=== PATIENT | male | born 1985 | race Caucasian/White ===

== ENCOUNTER 2018-01-07 20:32 | Inpatient (IN) | payer MEDICAID ==
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
[2018-01-07 21:31] LABS: ABS Basophils 0.1 10^3/ul (0-0.2); ABS Eosinophils 0.3 10^3/ul (0-0.6); ABS Monocytes 0.8 10^3/ul (0-0.8); ABS Neutrophils 7.6 10^3/ul (1.5-7.7); ABS Nucleated RBC 0.1 10^3/ul; Eosinophil % 2.1 % (0-6); Hematocrit 46 % (42-52); Hemoglobin 15.5 g/dl (14.0-18.0); Lymphocyte % 25.3 % (25-47); Mean Corpuscular HGB Conc 34 g/dl (31-36); Mean Corpuscular Hemoglobin 30 pg (27-31); Mean Corpuscular Volume 89 fL (80-94); Nucleated Red Blood Cells % 0.6; Platelet Count 315 10^3/ul (150-450); Red Blood Count 5.12 10^6/ul (4.00-5.40); Red Cell Distribution Width 13 % (10.5-15); White Blood Count 11.7 10^3/ul (3.5-10.8)
[2018-01-07 21:41] LABS: Urine Appearance Clear; Urine Blood Negative (Negative); Urine Color Amber; Urine Ketones Trace (Negative); Urine Protein 1+(30 mg/dL) (Negative); Urine Red Blood Cell Trace(0-2/hpf) (Absent); Urine Specific Gravity 1.033 (1.010-1.030); Urine Urobilinogen Negative (Negative); Urine White Blood Cell Absent (Absent)
[2018-01-07 21:49] LABS: EGFR Non-African American 108.9 (>60)
[2018-01-08] MEDS ORDERED: chlorproMAZINE TAB* 50 MG ONE (00:42)
[2018-01-08] MEDS ORDERED: chlorproMAZINE INJ* 25 MG/ML 2 ML (50 MG) ONE ×2 (00:42)
--- NOTE | 2018-01-08 00:43 | ED ---
Progress - Progress Note Progress Note: This is marie Anderson documenting for attending Dr. Manoj Main MD. This patient was signed out from Dr. Lewis at shift change, pending disposition , awaiting MHE. The patient is diagnosed with pyschosis. He will be admitted to [facility]. Patient is agreeable with this plan. - Consult/PCP Time Called: 00:00 Course/Dx - Diagnoses Provider Diagnoses: Psychosis Discharge - Sign-Out/Discharge Documenting (check all that apply): Patient Departure, Receiving Sign-Out Receiving patient FROM: Devin Lewis - Patient was a sign out at shift change, pending disposition, awaiting MHE. - Discharge Plan Condition: Guarded Disposition: ADMITTED TO [facility] - Billing Disposition and Condition Condition: GUARDED Disposition: Admitted to [facility]
[2018-01-08] MEDS ORDERED: chlorproMAZINE TAB* 100 MG PO ONE (00:46)
[2018-01-08] MEDS ORDERED: Acetaminophen TAB* 325 MG PO PRN (01:21)
[2018-01-08] MEDS ORDERED: Al Hydrox/Mg Hydrox/Simet LIQ* 30 ML UDC PO PRN (01:21)
[2018-01-08] MEDS ORDERED: Haloperidol TAB* 5 MG PO PRN (01:22)
[2018-01-08] MEDS ORDERED: LORazepam TAB(*) 1 MG PO PRN (01:22)
[2018-01-08] MEDS: Vitamin THERAPEUTIC TAB PO SCH (09:59)
[2018-01-08] MEDS: risperiDONE TAB* 1 MG PO SCH (16:24)
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
[2018-01-09] MEDS: Vitamin THERAPEUTIC TAB PO SCH (09:29)
[2018-01-09] MEDS: risperiDONE TAB* 1 MG PO SCH (09:30)
[2018-01-09] MEDS ORDERED: Gadoteridol* (CONTRAST) 279.3 MG/ML 10 ML IV ONE (10:55)
--- NOTE | 2018-01-09 11:48 | RAD ---
INDICATION: Psychosis COMPARISON: None TECHNIQUE: Sagittal T1, axial T1, T2, susceptibility, FLAIR and diffusion-weighted images were obtained. In addition, axial, sagittal and coronal T1-weighted images were obtained following intravenous injection of 20 mL of ProHance contrast. FINDINGS: The ventricles, cisterns and sulci appear to be within normal limits. The bermudez-white matter differentiation is adequately preserved. There are no parenchymal brain lesions. No other significant focal abnormality or mass effect is seen. No areas of restricted diffusion are present. There is no evidence for infarct or hemorrhage. There is mild mucosal thickening of the right maxillary sinus with 1 inspissated secretion. Remaining sinuses are adequately aerated. IMPRESSION: Normal MRI of the brain with and without intravenous contrast.
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
[2018-01-10] MEDS: Vitamin THERAPEUTIC TAB PO SCH (08:50)
[2018-01-10] MEDS: risperiDONE TAB* 1 MG PO SCH (08:50)
--- NOTE | 2018-01-10 13:37 | PN ---
Subjective - Subjective Date of Service: 01/10/18 Service Type: 18561 Hosp care 15 min low complexity Subjective: WILBERTO appears euthymic and continues to present as odd and circumstantial, although with much less overt paranoia today. He is tolerating risperidone well and thinks it is helping him. "Normally I'm a somewhat anxious person. Like a 3 on the 1-10 scale, but this medicine seems to reduce that." He also expresses willingness to follow up at [facility] clinic. "Yeah, I think it would give me something to do, going downtown and talking to someone, maybe once a week or once every two weeks." His mother and step-father visited this afternoon and reportedly told the SW that WILBERTO is looking like he's back to his baseline. The patient talks at length about his relief at getting a negative head MRI, stating "Now at least I know that I don't have cancer. It's a lot off my shoulders." He does not come up with any spontaneous delusional material during our visit. Staff notes that he is calm and polite but tends not to interact with others much. He continues to deny SI or HI. Objective - Appearance Appearance: Well Developed/Nourished Dysmorphic Features: No Hygiene: Normal Grooming: Well Kept - Behavior Psychomotor Activities: Normal Exhibits Abnormal Movement: No - Attitude and Relatedness Attitude and Relatedness: Cooperative Eye Contact: Fair - Speech Quality: Unpressured Latencies: Normal Quantity: Appropriate - Mood Patient's Decription of Mood: "Good" - Affect Observed Affect: Fair Affect Consistent with: Euthymia - Thought Process Patient's Thought Process: Circumstantial Thought Content: No Passive Wish, No Suicidal Planning, No Homicidal Ideation, No Paranoid Ideation - Sensorium Experiencing Hallucinations: No, Sensorium is Clear Type of Hallucinations: Visual: No, Auditory: No, Command: No - Level of Consciousness Level of Consciousness: Alert Orientation: Yes Intact, Yes Orientated to Time, Yes Orientated to Place, Yes Orientated to Person - Impulse Control Impulse Control: Tenuous - Insight and Judgement Insight and Judgement: Fair - Group Participation Particating in Group Activities: No - Medication Management Medication Management Adherence: Yes Assessment - Assessment Merits Inpatient Hospitalization: Consolidate Improvements, Pending Safe DC Plan Inpatient DSM-V Dx: F29 Clinical Impression: 32 y.o. single, white, unemployed male with no formal psychiatric history who presents to the ED voluntarily for several days, appearing paranoid, delusional and unable to care for himself. Plan - Plan Treatment Plan: Name: WILBERTO RAMIREZ Birthdate: 1985 [id number] The patient has initiated antipsychotic therapy with risperidone 1mg PO qday. He is improving and does not seem to be a danger to himself or others. He is agreeable with continuing medication and psychotherapy on an outpatient basis at [facility]. Likely d/c to home tomorrow (01/11). Continued Medication Management: Start Medication Medications: Current Medications Acetaminophen (Tylenol Tab*) 650 mg PO Q4H PRN PRN Reason: PAIN or TEMP > 101 F Al Hydrox/Mg Hydrox/Simethicone (Maalox Plus*) 30 ml PO Q4H PRN PRN Reason: INDIGESTION Diphenhydramine HCl (Benadryl Po*) 50 mg PO Q6H PRN PRN Reason: ANXIETY/AGITATION Haloperidol (Haldol Tab*) 5 mg PO Q6H PRN PRN Reason: ANXIETY/AGITATION Lorazepam (Ativan Tab(*)) 2 mg PO Q6H PRN PRN Reason: ANXIETY/AGITATION Multivitamins (Theragran Tab*) 1 tab PO DAILY [facility] Last Admin: 01/10/18 08:50 Dose: 1 tab Risperidone (Risperdal*) 1 mg PO DAILY [facility] Last Admin: 01/10/18 08:50 Dose: 1 mg - Discharge Plan Discharge Plan: Outpatient Follow Up Outpatient Program: [facility] Lab Results - Lab Results Lab Results: 01/07/18 01/07/18 01/07/18 21:19 21:19 21:20 WBC 11.7 H RBC 5.12 Hgb 15.5 Hct 46 MCV 89 MCH 30 MCHC 34 RDW 13 Plt Count 315 MPV 9.0 Neut % (Auto) 64.9 Lymph % (Auto) 25.3 Grant % (Auto) 6.8 Eos % (Auto) 2.1 Baso % (Auto) 0.9 Absolute Neuts (auto) 7.6 Absolute Lymphs (auto) 3.0 Absolute Monos (auto) 0.8 Absolute Eos (auto) 0.3 Absolute Basos (auto) 0.1 Absolute Nucleated RBC 0.1 Nucleated RBC % 0.6 Sodium Potassium Chloride Carbon Dioxide Anion Gap BUN Creatinine Est GFR ( Amer) Est GFR (Non-Af Amer) BUN/Creatinine Ratio Glucose Hemoglobin A1c Calcium Total Bilirubin AST ALT Alkaline Phosphatase Total Protein Albumin Globulin Albumin/Globulin Ratio Triglycerides Cholesterol LDL Cholesterol HDL Cholesterol TSH Urine Color Liz Urine Appearance Clear Urine pH 5.0 Ur Specific [place] 1.033 H Urine Protein 1+(30 mg/dl) A Urine Ketones Trace A Urine Blood Negative Urine Nitrate Negative Urine Bilirubin Negative Urine Urobilinogen Negative Ur Leukocyte Esterase Negative Urine WBC (Auto) Absent Urine RBC (Auto) Trace(0-2/hpf) Ur Squamous Epith Cells Present A Urine Bacteria Absent Hyaline Casts Present A Urine Glucose Negative Salicylates Urine Opiates Screen None detected Acetaminophen Ur Barbiturates Screen None detected Ur Phencyclidine Scrn None detected Ur Amphetamines Screen None detected U Benzodiazepines Scrn None detected Urine Cocaine Screen None detected U Cannabinoids Screen None detected Serum Alcohol 01/07/18 01/07/18 21:20 21:20 WBC RBC Hgb Hct MCV MCH MCHC RDW Plt Count MPV Neut % (Auto) Lymph % (Auto) Grant % (Auto) Eos % (Auto) Baso % (Auto) Absolute Neuts (auto) Absolute Lymphs (auto) Absolute Monos (auto) Absolute Eos (auto) Absolute Basos (auto) Absolute Nucleated RBC Nucleated RBC % Sodium 138 Potassium 3.6 Chloride 104 Carbon Dioxide 24 Anion Gap 10 BUN 12 Creatinine 0.82 Est GFR ( Amer) 131.7 Est GFR (Non-Af Amer) 108.9 BUN/Creatinine Ratio 14.6 Glucose 133 H Hemoglobin A1c 5.5 Calcium 9.5 Total Bilirubin 0.30 AST 19 ALT 27 Alkaline Phosphatase 75 Total Protein 7.5 Albumin 4.5 Globulin 3.0 Albumin/Globulin Ratio 1.5 Triglycerides 158 Cholesterol 168 LDL Cholesterol 87 HDL Cholesterol 49.3 TSH 1.09 Urine Color Urine Appearance Urine pH Ur Specific [place] Urine Protein Urine Ketones Urine Blood Urine Nitrate Urine Bilirubin Urine Urobilinogen Ur Leukocyte Esterase Urine WBC (Auto) Urine RBC (Auto) Ur Squamous Epith Cells Urine Bacteria Hyaline Casts Urine Glucose Salicylates 3.70 Urine Opiates Screen Acetaminophen < 15 Ur Barbiturates Screen Ur Phencyclidine Scrn Ur Amphetamines Screen U Benzodiazepines Scrn Urine Cocaine Screen U Cannabinoids Screen Serum Alcohol < 10
[2018-01-11 07:53] VITALS: BP 151/90
[2018-01-11] MEDS: Vitamin THERAPEUTIC TAB PO SCH (09:23)
[2018-01-11] MEDS: risperiDONE TAB* 1 MG PO SCH (09:23)
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
== END 2018-01-11 13:00 | disposition home or self-care (01) | DRG 751 ==
LOC: ED 20:32 → BSU 01-08 00:25
PROVIDERS: ADMIT Psychiatry & Neurology Psychiatry; ATTEND Psychiatry & Neurology Psychiatry
DX: F29 Unspecified psychosis not due to a substance or known physiological condition (principal); Z81.8 Family history of other mental and behavioral disorders
CPT/HCPCS: 36415; 70553; 80053; 80061; 80307; 80320; 80329; 81003; 81015; 83036; 84443; 85025; 99222; 99231; 99232; 99285; A9270-GY; A9579; G0480

== ENCOUNTER 2018-02-23 12:46 | Emergency (ER) | payer MEDICAID ==
--- NOTE | 2018-02-23 13:29 | ED ---
Neurological HPI - HPI Summary HPI Summary: 32 M who takes abilify and respiradone for unspecified schizophrenic spectrum disorder, sees Dr. Dee at [facility] and sees a counselor weekly, presents today with complaints of blurred vision that has resolved, and feeling that he is going to "tip over", dizziness. He denies COLEMAN, fever, chest pain, SOB, abd pain , N, V, D. He was just DC'd from [facility] on 01/11/18 and started on the abilify which he feels is helping him. States he may have gotten dehydrated. Pt denies suicidal or homicidal ideation, denies hearing voices or visual hallucinations. - History of Current Complaint Chief Complaint: EDGeneral Stated Complaint: BLURRED VISION,NAUSEA Time Seen by Provider: 02/23/18 13:06 Hx Obtained From: Patient Onset/Duration: Gradual Onset, Started hours ago Timing: Constant Onset Severity: Moderate Current Severity: Mild Pain Intensity: 0 Pain Scale Used: 0-10 Numeric Character: Dizzy, Other: - like he will tip over Aggravating: Nothing Alleviating: Nothing Associated Signs and Symptoms: Positive: Visual Changes - blurred vision this am , resolved, Dizziness TPA Considered: No - Additional Pertinent History Primary Care Physician: None noted - Allergy/Home Medications Allergies/Adverse Reactions: Allergies Allergy/AdvReac Type Severity Reaction Status Date / Time No Known Allergies Allergy Verified 02/23/18 12:58 Home Medications: Home Medications ARIPiprazole TAB* [Abilify TAB*] 10 mg PO DAILY 02/23/18 [History Confirmed ] PMH/Surg Hx/FS Hx/Imm Hx Previously Healthy: No - schizophrenia Cardiovascular History: Denies: Hx Hypotension Sensory History: Denies: Hx Contacts or Glasses, Hx Deafness, Hx Hearing Aid Opthamlomology History: Denies: Hx Contacts or Glasses Psychiatric History: Reports: Hx Inpatient Treatment, Hx Community Mental Health Tx, Hx Schizophrenia - Cancer History Cancer Type, Location and Year: none - Surgical History Surgery Procedure, Year, and Place: none Infectious Disease History: No Infectious Disease History: Denies: Traveled Outside the [place] in Last 30 Days - Family History Known Family History: Negative: Diabetes - Social History Lives: With Family - with parents Alcohol Use: None Substance Use Type: Reports: None Smoking Status (MU): Never Smoked Tobacco Review of Systems Constitutional: Negative Positive: Blurred Vision - resolved ENT: Negative Cardiovascular: Negative Respiratory: Negative Gastrointestinal: Negative Musculoskeletal: Negative Skin: Negative Neurological: Negative Psychological: Normal All Other Systems Reviewed And Are Negative: Yes Physical Exam Triage Information Reviewed: Yes Vital Signs On Initial Exam: Initial Vitals Temp Pulse Resp BP Pulse Ox 98.8 F 134 20 149/100 97 02/23/18 12:57 02/23/18 12:57 02/23/18 12:57 02/23/18 12:57 02/23/18 12:57 Vital Signs Reviewed: Yes Appearance: Positive: Well-Appearing, No Pain Distress, Well-Nourished Skin: Positive: Warm, Skin Color Reflects Adequate Perfusion, Dry Head/Face: Positive: Normal Head/Face Inspection Eyes: Positive: EOMI, ALEJANDRA, Conjunctiva Clear ENT: Positive: Normal ENT inspection Neck: Positive: Supple, No Lymphadenopathy, Tenderness @ - right lateral. Negative: Nuchal Rigidity Respiratory/Lung Sounds: Positive: Clear to Auscultation, Breath Sounds Present Cardiovascular: Positive: Normal, RRR, Pulses are Symmetrical in both Upper and Lower Extremities, S1, S2 Abdomen Description: Positive: Nontender, No Organomegaly, Soft Bowel Sounds: Positive: Present Musculoskeletal: Positive: Normal, Strength/ROM Intact. Negative: Philomena Sign Left, Philomena Sign Right, Edema Left, Edema Right Neurological: Positive: Normal, Sensory/Motor Intact, Alert, Oriented to Person Place, Time, CN Intact II-III, Reflexes Intact Psychiatric: Positive: Normal - David Coma Scale Best Eye Response: 4 - Spontaneous Best Motor Response: 6 - Obeys Commands Best Verbal Response: 5 - Oriented Coma Scale Total: 15 Diagnostics - Vital Signs Vital Signs Temp Pulse Resp BP Pulse Ox 02/23/18 12:57 98.8 F 134 20 149/100 97 - Laboratory Result Diagrams: 02/23/18 13:45 02/23/18 13:45 Lab Statement: Any lab studies that have been ordered have been reviewed, and results considered in the medical decision making process. - EKG 1407 Cardiac Rate: NL EKG Rhythm: Sinus Rhythm - 90 ST Segment: Normal Ectopy: None EKG Interpretation: nl AVIVCT, nl ATc, nl axis, no acute changes EKG Comparison: Other - no prior to compare NIH Scale - NIH Scale Level of Consciousness: Alert/Keenly Responsive Ask Patient the Month and His/Her Age: Both Correct Ask Pt to Open/Close Eyes and Cardroom Worker/Release Non-Paretic Hand: Both Correctly Best Gaze (Only Horizontal Eye Movement): Normal Visual Field Testing: No Visual Loss Facial Paresis-Pt to Smile & Close Eyes or Grimace Symmetry: Normal/Symmetrical Motor Function - Right Arm: No Drift-Holds 10 Seconds Motor Function - Left Arm: No Drift-Holds 10 Seconds Motor Function - Right Leg: No Drift-Holds 10 Seconds Motor Function - Left Leg: No Drift-Holds 10 Seconds Limb Ataxia-Must be out of Proportion to Weakness Present: Absent Sensory (Use Pinprick to Test Arms/Legs/Trunk/Face): Normal Best Language (Describe Picture, Name Items): No Aphasia Dysarthria (Read Several Words): Normal Extinction and Inattention: No Abnormality Total Score: 0 Re-Evaluation - Re-Evaluation First Eval Re-Evaluation Time: 16:45 Change: Improved Comment: States his dizziness is better. No blurred vision. No COLEMAN. Still states no suicidal or homicidal and no hallucinations. Will give IV fluids for elevated pulse with standing. Second Eval Change: Improved Comment: IV fluids have finished. Pt feels better. Wishes to go home. Course/Dx - Course Course Of Treatment: 32 yo M with hx schizophrenia on abilify and respiradone, DC'd from [facility] on 01/11/18, states he has been compliant with medications and therapy c/o dizziness, blurred vision that resolved, and feeling like he was going to tip over. Found to be orthostatic for pulse rise, hydrated with NS IV and felt much better. Pt expressed no mental health concerns, no suicidal ideation or homicidal ideation while in the ED. Pt's step dad dropped him off and was his ride home. Pt was agreeable to discharge. - Differential Dx Differential Diagnoses Neuro: Positive: Benign Paroxysmal Positional Vertigo, Cerebrovascular Accident, Hypertension, Hypovolemia, Medication Reaction, Metabolic Abnormality, Transient Ischemic Attack, Viral Syndrome - Diagnoses Provider Diagnoses: Orthostatic dizziness, Dehydration Discharge - Sign-Out/Discharge Documenting (check all that apply): Patient Departure - Discharge Plan Condition: Stable Disposition: HOME Patient Education Materials: Dehydration (ED) Referrals: [facility] [Outside] - As Soon As Possible [facility] [Outside] - 1 Day Additional Instructions: Your labs did not show any serious cause for your dizziness and feeling like you were going to tip over. Your blood pressure and pulse did indicate that you may have been dehydrated. We gave you 2 liters of normal saline and you felt much better. The blurred vision did not recur. Dr. [facility] advises that you continue your current medications as directed. Return to the ER if you have any new or worsening symptoms. - Billing Disposition and Condition Condition: STABLE Disposition: Home
[2018-02-23 14:00] LABS: ABS Basophils 0 10^3/ul (0-0.2); ABS Eosinophils 0.1 10^3/ul (0-0.6); ABS Lymphocytes 1.8 10^3/ul (1.0-4.8); ABS Monocytes 0.4 10^3/ul (0-0.8); ABS Neutrophils 5.1 10^3/ul (1.5-7.7); ABS Nucleated RBC 0 10^3/ul; Eosinophil % 1.1 % (0-6); Hematocrit 41 % (42-52); Hemoglobin 14.1 g/dl (14.0-18.0); Lymphocyte % 24.9 % (25-47); Mean Corpuscular HGB Conc 34 g/dl (31-36); Mean Corpuscular Hemoglobin 31 pg (27-31); Mean Corpuscular Volume 89 fL (80-94); Mean Platelet Volume 9.5 um3 (7.4-10.4); Nucleated Red Blood Cells % 0; Platelet Count 202 10^3/ul (150-450); Red Blood Count 4.62 10^6/ul (4.00-5.40); Red Cell Distribution Width 14 % (10.5-15); White Blood Count 7.4 10^3/ul (3.5-10.8)
[2018-02-23 14:22] LABS: Urine Appearance Clear; Urine Blood Negative (Negative); Urine Color Colorless; Urine Ketones Negative (Negative); Urine Protein Negative (Negative); Urine Specific Gravity 1.001 (1.010-1.030); Urine Urobilinogen Negative (Negative)
[2018-02-23 14:26] LABS: EGFR Non-African American 113.7 (>60)
[2018-02-23] MEDS: NS 0.9% 1000 ML* 2,000 ML IV ONE (17:01)
[2018-02-23 18:58] VITALS: BP 153/64
== END 2018-02-23 18:57 | disposition home or self-care (01) ==
LOC: ED 12:46
DX: R42 Dizziness and giddiness (principal); E86.0 Dehydration; F20.9 Schizophrenia, unspecified
CPT/HCPCS: 36415; 80053; 80320; 80329; 81003; 83605; 83735; 84443; 84484; 85025; 85379; 86140; 93005; 96360; 99282; G0480

== ENCOUNTER 2018-02-28 01:28 | Inpatient (IN) | payer MEDICAID ==
--- NOTE | 2018-02-28 02:17 | ED ---
Psychiatric Complaint - HPI Summary HPI Summary: 32-year-old male with history of schizophrenia brought in by police with chief complaint of mental health problems. He states that he has been off his medications for 6 days after he was having some nausea and had to come to the ER for that. He was last admitted back in December and January for similar troubles. He states he's been having hallucinations including both auditory and visual hallucinations. He denies any suicidal or homicidal ideations. He has been depressed as well. He denies any aches or pains and any use of drug or alcohol. He is well known to this facility. - History Of Current Complaint Chief Complaint: EDMentalHealth Time Seen by Provider: 02/28/18 02:06 Hx Obtained From: Patient - Allergies/Home Medications Allergies/Adverse Reactions: Allergies Allergy/AdvReac Type Severity Reaction Status Date / Time No Known Allergies Allergy Verified 02/28/18 01:34 PMH/Surg Hx/FS Hx/Imm Hx Previously Healthy: No - unspecified schizophrenia Cardiovascular History: Denies: Hx Hypotension Sensory History: Denies: Hx Contacts or Glasses, Hx Deafness, Hx Hearing Aid Opthamlomology History: Denies: Hx Contacts or Glasses Psychiatric History: Reports: Hx Inpatient Treatment, Hx Community Mental Health Tx, Hx Schizophrenia - Cancer History Cancer Type, Location and Year: none - Surgical History Surgery Procedure, Year, and Place: none Infectious Disease History: No Infectious Disease History: Denies: Traveled Outside the US in Last 30 Days - Family History Known Family History: Negative: Diabetes - Social History Alcohol Use: None Substance Use Type: Reports: None Smoking Status (MU): Never Smoked Tobacco Review of Systems Negative: Fever Negative: Shortness Of Breath Negative: Vomiting, Nausea Negative: Headache, Weakness Positive: Depressed, Other - auditory and visual hallucinations. Denies SI, HI All Other Systems Reviewed And Are Negative: Yes Physical Exam Triage Information Reviewed: Yes Vital Signs On Initial Exam: Initial Vitals Temp Pulse Resp BP Pulse Ox 98.0 F 79 20 160/103 95 02/28/18 01:30 02/28/18 01:30 02/28/18 01:30 02/28/18 01:30 02/28/18 01:30 Vital Signs Reviewed: Yes Appearance: Positive: Well-Appearing, No Pain Distress Skin: Positive: Warm, Skin Color Reflects Adequate Perfusion, Dry Eyes: Positive: EOMI ENT: Positive: Pharynx normal Neck: Positive: Supple, Nontender Cardiovascular: Positive: RRR Abdomen Description: Positive: Nontender, No Organomegaly Musculoskeletal: Positive: Normal, Strength/ROM Intact, Other - Bruising in both antecubital fossa consistent with recent blood draws Neurological: Positive: Normal, Sensory/Motor Intact, Alert, Oriented to Person Place, Time Psychiatric: Positive: Other - Flat affect, stares off. AVPU Assessment: Alert Diagnostics - Vital Signs Vital Signs Temp Pulse Resp BP Pulse Ox 02/28/18 01:30 98.0 F 79 20 160/103 95 - Laboratory Result Diagrams: 02/28/18 02:20 02/28/18 02:20 Lab Statement: Any lab studies that have been ordered have been reviewed, and results considered in the medical decision making process. - EKG EKG Cardiac Rate: NL - 87 EKG Rhythm: Sinus Rhythm ST Segment: Normal Ectopy: None EKG Interpretation: NSR, nl axis/intervals/ST EKG Comparison: No Significant Change Course/Dx - Course Course Of Treatment: Patient long-standing schizoaffective disorder off medications. He was examined and cleared medically by me. He received crisis evaluation after which time it was elected by the psychiatrist that he be admitted by 9.39. - Differential Dx/Clinical Impression Provider Diagnosis: Schizoaffective disorder Discharge - Sign-Out/Discharge Documenting (check all that apply): Patient Departure - Discharge Plan Condition: Stable Disposition: ADMITTED TO [facility] Referrals: No Primary Care Phys,NOPCP [Primary Care Provider] - - Billing Disposition and Condition Condition: STABLE Disposition: Admitted to [facility] - Attestation Statements Document Initiated by Scribe: No
[2018-02-28 02:35] LABS: ABS Basophils 0 10^3/ul (0-0.2); ABS Eosinophils 0.1 10^3/ul (0-0.6); ABS Monocytes 0.9 10^3/ul (0-0.8); ABS Nucleated RBC 0 10^3/ul; Eosinophil % 0.8 % (0-6); Hematocrit 45 % (42-52); Hemoglobin 14.9 g/dl (14.0-18.0); Lymphocyte % 25.1 % (25-47); Mean Corpuscular HGB Conc 34 g/dl (31-36); Mean Corpuscular Hemoglobin 30 pg (27-31); Mean Corpuscular Volume 89 fL (80-94); Mean Platelet Volume 9.2 um3 (7.4-10.4); Nucleated Red Blood Cells % 0; Platelet Count 286 10^3/ul (150-450); Red Blood Count 5.01 10^6/ul (4.00-5.40); Red Cell Distribution Width 13 % (10.5-15); White Blood Count 12.1 10^3/ul (3.5-10.8)
[2018-02-28 02:58] LABS: EGFR Non-African American 101.7 (>60)
[2018-02-28 05:22] LABS: Urine Appearance Cloudy; Urine Blood Negative (Negative); Urine Color Amber; Urine Ketones 1+ (Negative); Urine Protein Negative (Negative); Urine Urobilinogen Negative (Negative)
--- NOTE | 2018-02-28 16:57 | RAD ---
HISTORY: Chronic pain of left femur COMPARISONS: None VIEWS: 4 , Frontal and lateral views of the left femur FINDINGS: BONE DENSITY: Normal. BONES: There is no displaced fracture. JOINTS: There is no arthropathy. ALIGNMENT: There is no dislocation. SOFT TISSUES: Unremarkable. OTHER FINDINGS: None. IMPRESSION: NO ACUTE OSSEOUS INJURY. IF SYMPTOMS PERSIST, RECOMMEND REPEAT IMAGING.
--- NOTE | 2018-02-28 21:16 | HP ---
PSYCHIATRIC HISTORY AND PHYSICAL: DATE OF ADMISSION: 02/28/18 JUSTIFICATION FOR ADMISSION: The patient is in need of 24-hour supervision and care secondary to disorganized psychotic behavior, which cannot be reasonably treated in a less restrictive setting. CHIEF COMPLAINT: "I stopped taking my medications because I thought they were making me nauseous." HISTORY OF PRESENT ILLNESS: The patient is a 32-year-old single white male with a recent diagnosis of schizophrenia who was brought to the hospital by law enforcement on a 9.41 legal status after pulling a fire alarm at a local laundromat. He stated upon evaluation that this was secondary to fears about radiation poisoning from space. He was voicing concern about cancer in his left leg due to someone poisoning him with radiation. It should be noted that this is a similar presentation to when he was admitted to the behavioral science unit in December 2017 under the service of this clinician. At that time, he was complaining of a longstanding delusional belief that members of the [employer] had poisoned him during a job interview there several years ago in the formerly [facility] of [place]. In December of this year, we started him on risperidone, which he responded well to and we discharged him to receive treatment at the [facility]. The patient was adherent with medications and with outpatient followup, but states that his outpatient provider, Dr. Olaf Dee, changed his risperidone to aripiprazole due to complaints of sedation. Approximately 7 days ago, the patient was in our emergency room complaining of blurred vision and nausea, which he attributed to the aripiprazole. At that time, he self-discontinued aripiprazole and quickly became delusional and paranoid again feeling that unseen, others were reading his thoughts and poisoning him. At this time, I did offer him initiation of aripiprazole monthly injectable; however, he is declining this stating that the oral aripiprazole works well. He is no longer attributing his nausea to this medicine and states that he was doing fairly well before self-stopping this. PAST PSYCHIATRIC HISTORY: The patient had 1 prior psychiatric admission in December 2017 under this clinician's care. This was his first and only prior psychiatric admission. It appears that he became symptomatic 3 to 4 years ago when he was residing in [place] and attempted to get a job with [employer]. He blames them for threatening him and he has had a preoccupation with subjects related to radiation ever since. He was initially treated with risperidone; however, this was switched to aripiprazole in the outpatient environment. It is uncertain at this time whether he has a psychotherapist at [facility]. SUBSTANCE ABUSE HISTORY: Insignificant, he is a social alcohol drinker, but never too excess. He denies tobacco abuse or use of illegal drugs. PAST MEDICAL HISTORY: Unremarkable. FAMILY HISTORY: Allegedly, his biological father committed suicide. He was a [place] who suffered from bipolar disorder and PTSD. The suicide occurred when AJ was 12 years old. SOCIAL HISTORY: The patient was born and raised in [place], [place]. For time, he moved to [place] and was residing there, but then moved back to [place] and then moved to be closure with his mother who resides in [place] in approximately November of this year. Most recently, he had been working for a local [employer] in [place], but apparently is currently unemployed. He was with his mother and stepfather with whom he has a good relationship. He is not in any current romantic relationships, but has dated females in the past. He has never been , has no children. He has no significant legal history. REVIEW OF SYSTEMS: The patient complains of pain in his left lower extremity in the area of his femur and he is requesting imaging studies of this. Other than that, however, he denies double vision or headache. He denies sore throat , cough, chest pain, difficulty breathing. He denies abdominal pain, nausea, vomiting, diarrhea, or constipation. He denies difficulty ambulating, enlarged lymph nodes, rashes, fevers, or changes in weight. PHYSICAL EXAMINATION VITAL SIGNS: His blood pressure was elevated at 145/108, heart rate elevated at 106, respiratory rate 16, temperature 98.6 degrees Fahrenheit, oxygen saturations are 98% on room air. HEENT: Head is normocephalic, atraumatic. NECK: Supple. CHEST: Clear to auscultation bilaterally. CARDIAC: Exam reveals normal heart sounds. ABDOMEN: Soft, slightly obese, and nontender. MUSCULOSKELETAL: Exam reveals no sign of edema. NEUROLOGICAL: He is grossly intact with no focal deficits. SKIN: Warm and dry. MENTAL STATUS EXAMINATION: The patient is a young while male, somewhat overweight with dark hair who is clean and well groomed. He is somewhat oddly related, but otherwise makes good eye contact and is fairly easy to establish a rapport with him. Speech has a normal rate, tone, and volume. Mood would appear to be slightly anxious with a somewhat blunted affect. Thought process is linear. Thought content is significant for delusions regarding people poisoning him with radiation and preoccupation about subjects related to radiation. He denies suicidal or homicidal ideations. He denies auditory or visual hallucinations. Insight and judgment appeared to be poor given his recent self-discontinuation of antipsychotic therapy. Cognitively, he is awake and alert with what would appear to be an average intellect. LABORATORY DATA: CBC is within normal limits as is his complete metabolic panel. TSH normal at 1.40. Urinalysis within normal limits. Urine drug screen negative for all substances tested. DIAGNOSES: As follows: [place] I: Schizophrenia. [place] II: Deferred. IMPRESSION: The patient is a 32-year-old single white male with a recent diagnosis of schizophrenia who arrived at our hospital via the police after causing a scene in a local laundromat where he pulled the fire alarm and was complaining about people poisoning him with radiation. After self- discontinuing his aripiprazole close to 7 days ago, he rapidly became delusional and psychotic again and this reinforces the need for the patient to remain adherent with antipsychotic therapy. I did offer him the choice of long- acting injectable aripiprazole; however, he is declining this wanting to stay on the oral version of Abilify. PLAN: The patient is admitted to the Adult Behavioral Health Unit where he is placed on q.15-minute checks for his own safety. I will immediately resume aripiprazole therapy at 10 mg p.o. daily. We will screen him for metabolic disorders by getting a lipid panel as well as hemoglobin A1c. The patient is also complaining of pain in his left lower extremity. I explained to him that an x-ray does involve some degree of radiation, but he seemed unconcerned about this and feels that he has dealt with an injury for a long time that needs further evaluation. For this reason, we will order an x-ray of his left femur. We will likely be reaching out to the [facility] as well as the patient's parents for further collateral and rally social support and to make sure that he has appropriate followups in place. I do not anticipate that this will be a long hospitalization given how quickly he appears to reconstitute with antipsychotic therapy. [id number]/CPS #: [id number] JOHAN
[2018-03-01] MEDS: ARIPiprazole TAB* 5 MG PO SCH (08:56)
--- NOTE | 2018-03-01 11:54 | PN ---
Subjective - Subjective Date of Service: 03/01/18 Service Type: 74886 Hosp care 15 min low complexity Subjective: WILBERTO is in good spirits, relieved that his left leg X-ray was negative. He is denying paranoid ideation and tolerating the resumption of his oral aripiprazole without untoward effects. He is denying SI or HI and makes no overt statements of paranoid delusional content. He requests discharge tomorrow to his mother's home here in [place]. Objective - Appearance Appearance: Well Developed/Nourished Dysmorphic Features: No Hygiene: Normal Grooming: Fairly Well Kept - Behavior Psychomotor Activities: Normal Exhibits Abnormal Movement: No - Attitude and Relatedness Attitude and Relatedness: Cooperative Eye Contact: Fair - Speech Quality: Unpressured Latencies: Normal Quantity: Terse - Mood Patient's Decription of Mood: "Okay" - Affect Observed Affect: Unvariable Affect Consistent with: Euthymia - Thought Process Patient's Thought Process: Coherent Thought Content: No Passive Wish, No Suicidal Planning, No Homicidal Ideation, No Paranoid Ideation - Sensorium Experiencing Hallucinations: No, Sensorium is Clear Type of Hallucinations: Visual: No, Auditory: No, Command: No - Level of Consciousness Level of Consciousness: Alert Orientation: Yes Intact, Yes Orientated to Time, Yes Orientated to Place, Yes Orientated to Person - Impulse Control Impulse Control: Tenuous - Insight and Judgement Insight and Judgement: Fair - Group Participation Particating in Group Activities: No - Medication Management Medication Management Adherence: Yes Assessment - Assessment Merits Inpatient Hospitalization: Consolidate Improvements, Pending Safe DC Plan Inpatient DSM-V Dx: F20.9 Clinical Impression: 32 y.o. single, white male with a recent diagnosis of schizophrenia returns to the hospital on involuntary 9.41 legal status one week after self- discontinuation of his oral aripiprazole therapy and presenting with agitated, delusional psychosis, with fears that others are poisoning him with radiation and having pulled the fire alarm in a local laundromat. Plan - Plan Treatment Plan: Name: WILBERTO RAMIREZ Birthdate: 1985 [id number] We have resumed aripiprazole 10mg PO qday. [employer] tomorrow, March 02, for discharge to home. Continued Medication Management: Continue Outpt Medication Medications: Current Medications Aripiprazole (Abilify Tab*) 10 mg PO DAILY INA Last Admin: 03/01/18 08:56 Dose: 10 mg - Discharge Plan Discharge Plan: Outpatient Follow Up Outpatient Program: [facility] Lab Results - Lab Results Lab Results: 02/28/18 02/28/18 02/28/18 02:20 02:20 02:20 WBC 12.1 H RBC 5.01 Hgb 14.9 Hct 45 MCV 89 MCH 30 MCHC 34 RDW 13 Plt Count 286 MPV 9.2 Neut % (Auto) 66.6 Lymph % (Auto) 25.1 Benson % (Auto) 7.1 H Eos % (Auto) 0.8 Baso % (Auto) 0.4 Absolute Neuts (auto) 8.0 H Absolute Lymphs (auto) 3.0 Absolute Monos (auto) 0.9 H Absolute Eos (auto) 0.1 Absolute Basos (auto) 0 Absolute Nucleated RBC 0 Nucleated RBC % 0 Sodium 138 Potassium 3.5 Chloride 103 Carbon Dioxide 26 Anion Gap 9 BUN 10 Creatinine 0.87 Est GFR ( Amer) 123.0 Est GFR (Non-Af Amer) 101.7 BUN/Creatinine Ratio 11.5 Glucose 113 H Calcium 9.8 Total Bilirubin 0.60 AST 42 H ALT 27 Alkaline Phosphatase 57 Total Protein 7.9 Albumin 5.0 Globulin 2.9 Albumin/Globulin Ratio 1.7 Triglycerides Cholesterol LDL Cholesterol HDL Cholesterol TSH 1.40 Urine Color Liz Urine Appearance Cloudy Urine pH 5.0 Ur Specific Fithian 1.020 Urine Protein Negative Urine Ketones 1+ A Urine Blood Negative Urine Nitrate Negative Urine Bilirubin Negative Urine Urobilinogen Negative Ur Leukocyte Esterase Negative Urine Glucose Negative Salicylates < 2.50 Urine Opiates Screen Acetaminophen < 15 Ur Barbiturates Screen Ur Phencyclidine Scrn Ur Amphetamines Screen U Benzodiazepines Scrn Urine Cocaine Screen U Cannabinoids Screen Serum Alcohol < 10 02/28/18 03/01/18 02:20 06:34 WBC RBC Hgb Hct MCV MCH MCHC RDW Plt Count MPV Neut % (Auto) Lymph % (Auto) Benson % (Auto) Eos % (Auto) Baso % (Auto) Absolute Neuts (auto) Absolute Lymphs (auto) Absolute Monos (auto) Absolute Eos (auto) Absolute Basos (auto) Absolute Nucleated RBC Nucleated RBC % Sodium Potassium Chloride Carbon Dioxide Anion Gap BUN Creatinine Est GFR ( Amer) Est GFR (Non-Af Amer) BUN/Creatinine Ratio Glucose Calcium Total Bilirubin AST ALT Alkaline Phosphatase Total Protein Albumin Globulin Albumin/Globulin Ratio Triglycerides 70 Cholesterol 134 LDL Cholesterol 72 HDL Cholesterol 48.1 TSH Urine Color Urine Appearance Urine pH Ur Specific Fithian Urine Protein Urine Ketones Urine Blood Urine Nitrate Urine Bilirubin Urine Urobilinogen Ur Leukocyte Esterase Urine Glucose Salicylates Urine Opiates Screen None detected Acetaminophen Ur Barbiturates Screen None detected Ur Phencyclidine Scrn None detected Ur Amphetamines Screen None detected U Benzodiazepines Scrn None detected Urine Cocaine Screen None detected U Cannabinoids Screen None detected Serum Alcohol
[2018-03-02] MEDS: ARIPiprazole TAB* 5 MG PO SCH (09:30)
[2018-03-02 09:31] VITALS: BP 133/86
[2018-03-03] MEDS: ARIPiprazole TAB* 5 MG PO SCH (08:17)
--- NOTE | 2018-03-04 05:59 | DS ---
DISCHARGE SUMMARY: DATE OF ADMISSION: 02/28/18. DATE OF DISCHARGE: 03/03/18. DISCHARGE DIAGNOSES: As follows: [place] I: Schizophrenia. [place] II: Deferred. CONDITION AT THE TIME OF DISCHARGE: Improved. The patient is back to his psychiatric baseline. He is tolerating the resumption of aripiprazole. Denies any side effects including nausea. The patient has been calm and cooperative throughout his hospital stay. He is more social with a brighter affect. He has been safe on all checks. He shows no overt signs of psychosis and is not making delusional statements. Does not feel persecuted against and he denies auditory or visual hallucinations. His parents are aware of the discharge plan and are agreeable with arriving at the hospital to pick him up and take him home. His outpatient followup has been established with the [facility] where he sees Dr. Olaf Dee. MENTAL STATUS EXAM: At the time of discharge, the patient is a young white male , somewhat overweight with dark hair who is clean and well groomed. He is shy, but makes fairly good eye contacts and is easy to establish a rapport with. Speech has normal rate, tone and volume. Mood is euthymic with a somewhat blunted affect. Thought process is linear. Thought content is significant for his desire to be discharged from the hospital. He is denying further delusional ideas. He also denies suicidal or homicidal ideations. He denies auditory or visual hallucinations. Insight and judgment appear to be fair given his willingness to take antipsychotic therapy. Cognitively, he is awake and alert with what would appear to be an average intellect. LABORATORY STUDIES: Routine metabolic screening was performed on 03/01/18 revealing a hemoglobin A1c of 5.3, triglycerides 70, cholesterol 134, LDL 72, HDL 48.1. DISCHARGE INSTRUCTIONS TO THE PATIENT: As follows: A. Medications: The patient will be taking aripiprazole 10 mg p.o. daily. B. Diet: Regular diet. C. Activities: As tolerated. The patient is a nonsmoker. There are no laboratory or diagnostic studies pending at the time of discharge. D. Followup care: The patient will follow up at the [facility]. His next appointment with Dr. Olaf Dee will be , 03/16/18 at 9 a.m. E. Substance abuse followup: Nonapplicable. HOSPITAL COURSE - PART A: Reason for admission. The patient is a 32-year-old single white male with a recent diagnosis of schizophrenia who was brought to the hospital by law enforcement on a 9.41 legal status after pulling a fire alarm at a local laundromat. He stated upon evaluation that this was secondary to fears about radiation poisoning from space. He was voicing concern about cancer in his left leg due to someone poisoning him with radiation. It should be noted that this is a similar presentation to when he was admitted to the behavioral science unit in December 2017 under the service of this clinician. At that time, he was complaining of a longstanding delusional belief that members of the [facility] [employer] had poisoned him during a job interview there several years ago when he was residing in the [facility]. In December of this year, we started him on low dose risperidone, which he responded well to and we were able to discharge him in order to follow up with community care at [facility]. The patient was adherent with medications and with outpatient followup, but states that his psychiatrist, Dr. Olaf Dee changed his risperidone to aripiprazole due to the complaints of sedation. Approximately 7 to 8 days prior to this current admission, the patient was in our emergency room complaining of blurred vision and nausea, which he attributed to aripiprazole. At that time, he self discontinued the medication and quickly became delusional and paranoid again feeling that unseen others were reading his thoughts and poisoning him. At the time of admission, I did offer him initiation of aripiprazole monthly injectable , however, he declined this stating that oral aripiprazole works well. He was no longer attributing nausea to this medicine and states that he was doing fairly well before self stopping this. HOSPITAL COURSE - PART B: Psychiatric treatment rendered. The patient was admitted to the adult behavioral health unit where he was placed q.15 minute checks for his own safety. We did resume oral aripiprazole 10 mg p.o. daily with the understanding that he returns to the hospital soon. We may be in a position to obligate him to accept long-acting injectable formulation of this medicine. The patient expressed an understanding of this stating that he is tolerating the aripiprazole well progressively through the hospitalization. His behavior became far less odd. He almost immediately discontinued making overt delusional statements. He stopped pacing the hallways, was able to participate more in social activities and he was visited by his mother and stepfather on the unit. They are in agreement with the discharge plan. The patient has been good at following up on an outpatient basis and is agreeable with returning to [facility]. At this time, I do believe he is at his psychiatric baseline and ready to be discharged to home. [id number]/CPS #: [id number] JOHAN
== END 2018-03-03 14:55 | disposition home or self-care (01) | DRG 750 ==
LOC: ED 01:28 → BSU 03:35
PROVIDERS: ADMIT Psychiatry & Neurology Psychiatry; ATTEND Psychiatry & Neurology Psychiatry
DX: F20.9 Schizophrenia, unspecified (principal); M79.662 Pain in left lower leg; E66.3 Overweight; Z72.89 Other problems related to lifestyle; Z81.8 Family history of other mental and behavioral disorders; Z56.0 Unemployment, unspecified; Z68.29 Body mass index [BMI] 29.0-29.9, adult
CPT/HCPCS: 36415; 80053; 80061; 80307; 80320; 80329; 81003; 83036; 84443; 85025; 93005; 99222; 99231; 99238; 99284; A9270-GY; G0480

== ENCOUNTER 2018-03-03 19:27 | Inpatient (IN) | payer MEDICAID ==
[2018-03-04 00:28] LABS: ABS Basophils 0.1 10^3/ul (0-0.2); ABS Eosinophils 0.2 10^3/ul (0-0.6); ABS Lymphocytes 3.7 10^3/ul (1.0-4.8); ABS Monocytes 0.8 10^3/ul (0-0.8); ABS Neutrophils 6.7 10^3/ul (1.5-7.7); ABS Nucleated RBC 0 10^3/ul; Eosinophil % 1.5 % (0-6); Hematocrit 42 % (42-52); Hemoglobin 14.3 g/dl (14.0-18.0); Lymphocyte % 32.4 % (25-47); Mean Corpuscular HGB Conc 34 g/dl (31-36); Mean Corpuscular Hemoglobin 31 pg (27-31); Mean Corpuscular Volume 90 fL (80-94); Mean Platelet Volume 9.2 um3 (7.4-10.4); Nucleated Red Blood Cells % 0.1; Platelet Count 267 10^3/ul (150-450); Red Blood Count 4.64 10^6/ul (4.00-5.40); Red Cell Distribution Width 14 % (10.5-15); White Blood Count 11.6 10^3/ul (3.5-10.8)
[2018-03-04 00:41] LABS: EGFR Non-African American 99.1 (>60)
[2018-03-04] MEDS ORDERED: Acetaminophen TAB* 325 MG PO PRN (08:20)
[2018-03-04] MEDS ORDERED: Al Hydrox/Mg Hydrox/Simet LIQ* 30 ML UDC PO PRN (08:20)
[2018-03-04] MEDS: Vitamin THERAPEUTIC TAB PO SCH (09:22)
[2018-03-04] MEDS ORDERED: LORazepam TAB(*) 1 MG PO ONE (15:24)
[2018-03-04] MEDS: Benztropine TAB* 1 MG PO SCH (22:09)
[2018-03-04] MEDS: risperiDONE TAB* 1 MG PO SCH (22:09)
--- NOTE | 2018-03-04 22:28 | HP ---
HISTORY AND PHYSICAL: DATE OF ADMISSION: IDENTIFYING DATA: Giles is a 32-year-old single, unemployed, male, who was discharged from [facility] to home with his parents and returned within 5 hours complaining of the same problem that he was ad mitted to begin with on 02/28/18. CHIEF COMPLAINT: "I'm being targeted from the space." HISTORY OF PRESENT ILLNESS: The patient is constantly pacing the unit and would not sit down for the evaluation; however, I was able to have a conversation with him while he was pacing the hallways. D uring the conversation, Giles reports that he felt safe to go home hours ago, but as soon as he arrived home, he was trying to watch a sci-fi movie about a man that was trying to steal someone's brain and implant that into another person's skull. At that point, his feelings about himself being attacked b y rays from the satellites in the [place] and felt very unsafe at home. Following that, his dad called [facility] and they brought him to the emergency room. When asked how that radiation wa s affecting him, he said that was destroying his thyroid. During the conversations, he was repeatedl y flailing his arms in an attempt to deflect some unseen stimuli. When asked what was he doing, he s aid he was responding to the satellite. He also reports that he is hearing a man's voice telling him that everything is fine. Denies any command auditory hallucinations. Also denies exactly visual devries llucinations, but says when he closes his eyes he sees objects that are in the environment. Giles was g etting a little bit restless and wanted to walk away and would not respond to any questions anymore i nstead appeared to be responding to some internal stimuli. Rest of his history is available in the H and P done by Dr. Gongora on 02/28/18, please refer to that H and P. Because of the patient's refusal to cooperate, no physical could be completed and I did not see any physical done in the emergency ro om either. However, there were labs done while he was in the emergency room, which included hematolog y and comprehensive metabolic profile with tox screen. Labs appear to be unremarkable with slightly elevated WBC count, which is insignificant. Tox screen was negative. His potassium level was 3.3, w hich is also insignificant. There were no other laboratory tests or physical findings, which could h ave impacted his mental status. MENTAL STATUS EXAMINATION: Giles is mildly obese, healthy-appearing male, who is appropriatel y dressed, poorly groomed with poor personal hygiene. He is alert and oriented to time, place, and p erson, restless with [id number] psychomotor agitation, makes poor eye contact. Speech is poor and answers questions minimally, mostly yes and no. His attention and concentration appear to be justine y poor as he was responding to some internal stimuli and unseen stimuli, which he reported was the ra diation from the satellites. He also reported of hearing a male voice assuring him that everything i s going to be fine and there was some indication of vague visual hallucinations, especially when he c loses his eyes. Denies any suicidal or homicidal ideation. His insight and judgment appear to be imp aired. SUMMARY: This 32-year-old male with known history of psychotic disorder and a possible diagnosis of schizophrenia was brought into the emergency room approximately 5 hours from his discharge home due t o relapse on psychotic symptoms. DIAGNOSTIC IMPRESSION: [place] I: Schizophrenia, paranoid type. Physical health diagnosis: None. TREATMENT RECOMMENDATIONS: Giles will be readmitted to behavioral science unit for his protection and r apid stabilization of psychotic symptoms and what appears to be akathisia. His code status will william in full. Supportive milieu, individual, and group therapy will be initiated as he tolerates. My shon n is to give him a single dose of lorazepam to see if he can relax. He would not consider more than a single dose. Risks, benefits, and alternative to Risperdal on which he was stable prior to dischar ge last time before his previous hospitalization, he did not verbalize his unwillingness or willingne ss; however, I am going to prescribe risperidone 1 mg at bedtime with Cogentin 1 mg twice a day and o bserve him very closely for EPS. I will keep offering him lorazepam couple of times a day if he agre es to take it. [id number]/[facility] #: [id number]
[2018-03-05] MEDS: Vitamin THERAPEUTIC TAB PO SCH (08:39)
[2018-03-05] MEDS: Benztropine TAB* 1 MG PO SCH ×2 (08:39→21:40)
[2018-03-05] MEDS ORDERED: LORazepam TAB(*) 0.5 MG ONE (13:07)
[2018-03-05] MEDS: LORazepam TAB(*) 0.5 MG PO PRN ×2 (13:09→18:23)
[2018-03-05] MEDS: risperiDONE TAB* 1 MG PO SCH (21:40)
[2018-03-06] MEDS: LORazepam TAB(*) 0.5 MG PO PRN ×3 (04:28→17:38)
[2018-03-06] MEDS: Benztropine TAB* 1 MG PO SCH ×2 (09:38→20:44)
[2018-03-06] MEDS: Vitamin THERAPEUTIC TAB PO SCH (09:38)
--- NOTE | 2018-03-06 12:18 | PN ---
Subjective - Subjective Date of Service: 03/06/18 Service Type: 33258 Hosp care 15 min low complexity Subjective: WILBERTO is tolerating his medications well, remaining odd and pacing. He does not spontaneously report any delusional material but appears somewhat anxious. He denies SI or HI. Objective - Appearance Appearance: Obese Dysmorphic Features: No Hygiene: Normal Grooming: Fairly Well Kept - Behavior Psychomotor Activities: Abnormal-Increased Exhibits Abnormal Movement: No - Attitude and Relatedness Attitude and Relatedness: Cooperative Eye Contact: Fair - Speech Quality: Unpressured Latencies: Normal Quantity: Appropriate - Mood Patient's Decription of Mood: "Okay" - Affect Observed Affect: Unvariable Affect Consistent with: Euthymia - Thought Process Patient's Thought Process: Coherent Thought Content: Yes Paranoid Ideation, No Passive Wish, No Suicidal Planning, No Homicidal Ideation - Sensorium Experiencing Hallucinations: No, Sensorium is Clear Type of Hallucinations: Visual: No, Auditory: No, Command: No - Level of Consciousness Level of Consciousness: Alert Orientation: Yes Intact, Yes Orientated to Time, Yes Orientated to Place, Yes Orientated to Person - Impulse Control Impulse Control: Poor - Insight and Judgement Insight and Judgement: Impaired - Group Participation Particating in Group Activities: No - Medication Management Medication Management Adherence: Yes Assessment - Assessment Merits Inpatient Hospitalization: For Immediate Safety, For Stabilization Inpatient DSM-V Dx: F20.9 Clinical Impression: 32 y.o. single, white male with a recent diagnosis of schizophrenia arrives back at the hospital as a failed discharge less than 10 hours after being [facility] the [facility], due to continued psychotic delusions and inability to care for himself in a less restrictive setting. Plan - Plan Treatment Plan: Name: WILBERTO RAMIREZ Birthdate: 1985 [id number] We have changed him from aripiprazole back to risperidone. Also receiving benztropine and lorazepam due to EPS. Continue to treat on the inpatient unit. Continued Medication Management: Different Medication Medications: Current Medications Acetaminophen (Tylenol Tab*) 650 mg PO Q4H PRN PRN Reason: PAIN or TEMP > 101 F Al Hydrox/Mg Hydrox/Simethicone (Maalox Plus*) 30 ml PO Q4H PRN PRN Reason: INDIGESTION Benztropine Mesylate (Cogentin Tab*) 1 mg PO BID [facility] Last Admin: 03/06/18 09:38 Dose: 1 mg Lorazepam (Ativan Tab(*)) 0.5 mg PO TID PRN PRN Reason: ANXIETY Last Admin: 03/06/18 09:39 Dose: 0.5 mg Multivitamins (Theragran Tab*) 1 tab PO DAILY [facility] Last Admin: 03/06/18 09:38 Dose: 1 tab Risperidone (Risperdal*) 1 mg PO BEDTIME [facility] Last Admin: 03/05/18 21:40 Dose: 1 mg - Discharge Plan Discharge Plan: Inpatient Hospitalization Lab Results - Lab Results Lab Results: 03/04/18 03/04/18 03/05/18 00:14 00:14 07:12 WBC 11.6 H RBC 4.64 Hgb 14.3 Hct 42 MCV 90 MCH 31 MCHC 34 RDW 14 Plt Count 267 MPV 9.2 Neut % (Auto) 58.4 Lymph % (Auto) 32.4 [place] % (Auto) 7.2 H Eos % (Auto) 1.5 Baso % (Auto) 0.5 Absolute Neuts (auto) 6.7 Absolute Lymphs (auto) 3.7 Absolute Monos (auto) 0.8 Absolute Eos (auto) 0.2 Absolute Basos (auto) 0.1 Absolute Nucleated RBC 0 Nucleated RBC % 0.1 Sodium 139 Potassium 4.0 Chloride 102 Carbon Dioxide 31 Anion Gap 6 BUN 7 Creatinine 0.89 Est GFR ( Amer) 119.9 Est GFR (Non-Af Amer) 99.1 BUN/Creatinine Ratio 7.9 L Glucose 108 H Hemoglobin A1c Calcium 9.7 Total Bilirubin 0.60 AST 91 H ALT 52 Alkaline Phosphatase 51 Total Protein 7.2 Albumin 4.5 Globulin 2.7 Albumin/Globulin Ratio 1.7 Triglycerides 87 Cholesterol 134 LDL Cholesterol 72 HDL Cholesterol 45.1 TSH 1.06 Salicylates < 2.50 Acetaminophen < 15 Serum Alcohol < 10 03/05/18 07:12 WBC RBC Hgb Hct MCV MCH MCHC RDW Plt Count MPV Neut % (Auto) Lymph % (Auto) [place] % (Auto) Eos % (Auto) Baso % (Auto) Absolute Neuts (auto) Absolute Lymphs (auto) Absolute Monos (auto) Absolute Eos (auto) Absolute Basos (auto) Absolute Nucleated RBC Nucleated RBC % Sodium Potassium Chloride Carbon Dioxide Anion Gap BUN Creatinine Est GFR ( Amer) Est GFR (Non-Af Amer) BUN/Creatinine Ratio Glucose Hemoglobin A1c 5.3 Calcium Total Bilirubin AST ALT Alkaline Phosphatase Total Protein Albumin Globulin Albumin/Globulin Ratio Triglycerides Cholesterol LDL Cholesterol HDL Cholesterol TSH Salicylates Acetaminophen Serum Alcohol
[2018-03-06] MEDS: risperiDONE TAB* 1 MG PO SCH (20:44)
[2018-03-07] MEDS: Vitamin THERAPEUTIC TAB PO SCH (08:09)
[2018-03-07] MEDS: Benztropine TAB* 1 MG PO SCH ×2 (08:09→21:51)
[2018-03-07] MEDS: LORazepam TAB(*) 0.5 MG PO PRN ×2 (08:10→12:30)
--- NOTE | 2018-03-07 10:53 | PN ---
Subjective - Subjective Date of Service: 03/07/18 Service Type: [id number] Hosp care 15 min low complexity Subjective: Staff reports indicate that WILBERTO has continued pacing the halls, responding to internal stimuli, appearing anxious and complaining of AH. He tells me that he is tolerating his medications well and improving, although he remains odd interpersonally. Objective - Appearance Appearance: Obese Dysmorphic Features: No Hygiene: Normal Grooming: Well Kept - Behavior Psychomotor Activities: Abnormal-Increased Exhibits Abnormal Movement: No - Attitude and Relatedness Attitude and Relatedness: Psychotically Related Eye Contact: Fair - Speech Quality: Unpressured Latencies: Normal Quantity: Terse - Mood Patient's Decription of Mood: "Okay" - Affect Observed Affect: Unvariable Affect Consistent with: Euthymia - Thought Process Patient's Thought Process: Coherent Thought Content: Yes Paranoid Ideation, No Passive Wish, No Suicidal Planning, No Homicidal Ideation - Sensorium Experiencing Hallucinations: Yes Type of Hallucinations: Visual: No, Auditory: Yes, Command: No - Level of Consciousness Level of Consciousness: Alert Orientation: Yes Intact, Yes Orientated to Time, Yes Orientated to Place, Yes Orientated to Person - Impulse Control Impulse Control: Poor - Insight and Judgement Insight and Judgement: Impaired - Group Participation Particating in Group Activities: Yes - Medication Management Medication Management Adherence: Yes Assessment - Assessment Merits Inpatient Hospitalization: For Immediate Safety, For Stabilization Inpatient DSM-V Dx: F20.9 Clinical Impression: 32 y.o. single, white male with a recent diagnosis of schizophrenia arrives back at the hospital as a failed discharge less than 10 hours after being released [facility] the [facility], due to continued psychotic delusions and inability to care for himself in a less restrictive setting. Plan - Plan Treatment Plan: Name: WILBERTO RAMIREZ Birthdate: 1985 [id number] We have changed him from aripiprazole back to risperidone. Will increase this from 1 to 2mg nightly. Also receiving benztropine and lorazepam due to EPS. Continue to treat on the inpatient unit. Continued Medication Management: Different Medication Medications: Current Medications Acetaminophen (Tylenol Tab*) 650 mg PO Q4H PRN PRN Reason: PAIN or TEMP > 101 F Al Hydrox/Mg Hydrox/Simethicone (Maalox Plus*) 30 ml PO Q4H PRN PRN Reason: INDIGESTION Benztropine Mesylate (Cogentin Tab*) 1 mg PO BID [facility] Last Admin: 03/07/18 08:09 Dose: 1 mg Lorazepam (Ativan Tab(*)) 0.5 mg PO TID PRN PRN Reason: ANXIETY Last Admin: 03/07/18 08:10 Dose: 0.5 mg Multivitamins (Theragran Tab*) 1 tab PO DAILY [facility] Last Admin: 03/07/18 08:09 Dose: 1 tab - Discharge Plan Discharge Plan: Inpatient Hospitalization Lab Results - Lab Results Lab Results: 03/05/18 03/05/18 07:12 07:12 Hemoglobin A1c 5.3 Triglycerides 87 Cholesterol 134 LDL Cholesterol 72 HDL Cholesterol 45.1
[2018-03-07] MEDS ORDERED: risperiDONE TAB* 1 MG PO SCH (21:00)
[2018-03-08] MEDS: Vitamin THERAPEUTIC TAB PO SCH (08:08)
[2018-03-08] MEDS: Benztropine TAB* 1 MG PO SCH ×2 (08:08→21:19)
[2018-03-08] MEDS: LORazepam TAB(*) 0.5 MG PO PRN ×3 (08:08→18:14)
--- NOTE | 2018-03-08 13:18 | PN ---
Subjective - Subjective Date of Service: 03/08/18 Service Type: [id number] Hosp care 15 min low complexity Subjective: Patient continues to be odd, pacing the unit, appearing to respond to internal stimuli. He is tolerating resumption of risperidone well and denies SI or HI. Objective - Appearance Appearance: Obese Dysmorphic Features: No Hygiene: Normal Grooming: Well Kept - Behavior Psychomotor Activities: Abnormal-Increased Exhibits Abnormal Movement: No - Attitude and Relatedness Attitude and Relatedness: Psychotically Related Eye Contact: Fair - Speech Quality: Unpressured Latencies: Long Quantity: Appropriate - Mood Patient's Decription of Mood: "Okay" - Affect Observed Affect: Unvariable Affect Consistent with: Euthymia - Thought Process Patient's Thought Process: Circumstantial Thought Content: Yes Paranoid Ideation, No Passive Wish, No Suicidal Planning, No Homicidal Ideation - Sensorium Experiencing Hallucinations: Yes Type of Hallucinations: Visual: No, Auditory: Yes, Command: No - Level of Consciousness Level of Consciousness: Alert Orientation: Yes Intact, Yes Orientated to Time, Yes Orientated to Place, Yes Orientated to Person - Impulse Control Impulse Control: Poor - Insight and Judgement Insight and Judgement: Impaired - Group Participation Particating in Group Activities: No - Medication Management Medication Management Adherence: Yes Assessment - Assessment Merits Inpatient Hospitalization: For Immediate Safety, For Stabilization Inpatient DSM-V Dx: F20.9 Clinical Impression: 32 y.o. single, white male with a recent diagnosis of schizophrenia arrives back at the hospital as a failed discharge less than 10 hours after being released [facility] the [facility], due to continued psychotic delusions and inability to care for himself in a less restrictive setting. Plan - Plan Treatment Plan: Name: WILBERTO RAMIREZ Birthdate: 1985 [id number] We have changed him from aripiprazole back to risperidone. Will increase this from 2 to 3mg nightly. Also receiving benztropine and lorazepam due to EPS. Continue to treat on the inpatient unit. Continued Medication Management: Different Medication Medications: Current Medications Acetaminophen (Tylenol Tab*) 650 mg PO Q4H PRN PRN Reason: PAIN or TEMP > 101 F Last Admin: 03/08/18 11:43 Dose: 650 mg Al Hydrox/Mg Hydrox/Simethicone (Maalox Plus*) 30 ml PO Q4H PRN PRN Reason: INDIGESTION Benztropine Mesylate (Cogentin Tab*) 1 mg PO BID [facility] Last Admin: 03/08/18 08:08 Dose: 1 mg Lorazepam (Ativan Tab(*)) 0.5 mg PO TID PRN PRN Reason: ANXIETY Last Admin: 03/08/18 12:26 Dose: 0.5 mg Multivitamins (Theragran Tab*) 1 tab PO DAILY [facility] Last Admin: 03/08/18 08:08 Dose: 1 tab Risperidone (Risperdal*) 2 mg PO BEDTIME [facility] Last Admin: 03/07/18 21:51 Dose: 2 mg - Discharge Plan Discharge Plan: Inpatient Hospitalization
--- NOTE | 2018-03-08 16:45 | PN ---
[facility]: Group Therapy Note - Service Type Service Type: [id number] Group Psychotherapy - Medication Education Group: Patient attended group and presented with flat affect that did not vary with discussion. Although responsive to direct prompts to respond to questions, patient did not engage in spontaneous conversation. Noted to respond to internal stimuli.
[2018-03-08] MEDS: risperiDONE TAB* 3 MG PO SCH (21:19)
[2018-03-09] MEDS: Benztropine TAB* 1 MG PO SCH ×2 (08:32→21:41)
[2018-03-09] MEDS: Vitamin THERAPEUTIC TAB PO SCH (08:32)
[2018-03-09] MEDS: LORazepam TAB(*) 0.5 MG PO PRN ×3 (08:34→19:53)
--- NOTE | 2018-03-09 10:41 | PN ---
Subjective - Subjective Date of Service: 03/09/18 Service Type: [id number] Hosp care 15 min low complexity Subjective: WILBERTO continues to pace the hallways, responding to internal stimuli. I asked about the voices he's hearing and he says it's a male voice he can hear in both ear drums telling him innocuous things like "You got this." I saw a note from staff indicating some HI but WILBERTO denies this, as well as SI. He is tolerating medications well. He continues to have delusional preoccupations about satellites and radiation poisoning, but "only when I'm pacing...not when I'm reading a book or talking to people." Objective - Appearance Appearance: Obese Dysmorphic Features: No Hygiene: Normal Grooming: Fairly Well Kept - Behavior Psychomotor Activities: Abnormal-Increased Exhibits Abnormal Movement: No - Attitude and Relatedness Attitude and Relatedness: Cooperative Eye Contact: Fair - Speech Quality: Unpressured Latencies: Normal Quantity: Appropriate - Mood Patient's Decription of Mood: "Good" - Affect Observed Affect: Unvariable Affect Consistent with: Euthymia - Thought Process Patient's Thought Process: Coherent Thought Content: Yes Paranoid Ideation, No Passive Wish, No Suicidal Planning, No Homicidal Ideation - Sensorium Experiencing Hallucinations: Yes Type of Hallucinations: Visual: No, Auditory: Yes, Command: No - Level of Consciousness Level of Consciousness: Alert Orientation: Yes Intact, Yes Orientated to Time, Yes Orientated to Place, Yes Orientated to Person - Impulse Control Impulse Control: Intact - Insight and Judgement Insight and Judgement: Good - Group Participation Particating in Group Activities: Yes - Medication Management Medication Management Adherence: Yes Assessment - Assessment Merits Inpatient Hospitalization: For Immediate Safety, For Stabilization Inpatient DSM-V Dx: F20.9 Clinical Impression: 32 y.o. single, white male with a recent diagnosis of schizophrenia arrives back at the hospital as a failed discharge less than 10 hours after being released [facility] the [facility], due to continued psychotic delusions and inability to care for himself in a less restrictive setting. Plan - Plan Treatment Plan: Name: WILBERTO RAMIREZ Birthdate: 1985 [id number] We have changed him from aripiprazole back to risperidone, which we have titrated to 3mg nightly. Also receiving benztropine and lorazepam due to EPS. Continue to treat on the inpatient unit. Continued Medication Management: Different Medication Medications: Current Medications Acetaminophen (Tylenol Tab*) 650 mg PO Q4H PRN PRN Reason: PAIN or TEMP > 101 F Last Admin: 03/08/18 11:43 Dose: 650 mg Al Hydrox/Mg Hydrox/Simethicone (Maalox Plus*) 30 ml PO Q4H PRN PRN Reason: INDIGESTION Benztropine Mesylate (Cogentin Tab*) 1 mg PO BID [facility] Last Admin: 03/09/18 08:32 Dose: 1 mg Lorazepam (Ativan Tab(*)) 0.5 mg PO TID PRN PRN Reason: ANXIETY Last Admin: 03/09/18 08:34 Dose: 0.5 mg Multivitamins (Theragran Tab*) 1 tab PO DAILY [facility] Last Admin: 03/09/18 08:32 Dose: 1 tab Risperidone (Risperdal*) 3 mg PO BEDTIME [facility] Last Admin: 03/08/18 21:19 Dose: 3 mg - Discharge Plan Discharge Plan: Inpatient Hospitalization
[2018-03-09] MEDS: risperiDONE TAB* 3 MG PO SCH (21:41)
[2018-03-10] MEDS: Benztropine TAB* 1 MG PO SCH ×2 (08:23→20:20)
[2018-03-10] MEDS: Vitamin THERAPEUTIC TAB PO SCH (08:23)
[2018-03-10] MEDS: LORazepam TAB(*) 0.5 MG PO PRN ×3 (08:24→19:09)
--- NOTE | 2018-03-10 12:04 | PN ---
Subjective - Subjective Date of Service: 03/10/18 Service Type: [id number] Hosp care 15 min low complexity Subjective: The patient remains pacing, anxious and responding to internal stimuli with paranoid thoughts and AH. He is tolerating medications well and denies SI or HI. Objective - Appearance Appearance: Obese Dysmorphic Features: No Hygiene: Normal Grooming: Fairly Well Kept - Behavior Psychomotor Activities: Abnormal-Increased Exhibits Abnormal Movement: No - Attitude and Relatedness Attitude and Relatedness: Cooperative Eye Contact: Fair - Speech Quality: Unpressured Latencies: Normal Quantity: Appropriate - Mood Patient's Decription of Mood: "Okay" - Affect Observed Affect: Unvariable Affect Consistent with: Euthymia - Thought Process Patient's Thought Process: Circumstantial Thought Content: Yes Paranoid Ideation, No Passive Wish, No Suicidal Planning, No Homicidal Ideation - Sensorium Experiencing Hallucinations: Yes Type of Hallucinations: Visual: No, Auditory: Yes, Command: No - Level of Consciousness Level of Consciousness: Alert Orientation: Yes Intact, Yes Orientated to Time, Yes Orientated to Place, Yes Orientated to Person - Impulse Control Impulse Control: Poor - Insight and Judgement Insight and Judgement: Impaired - Group Participation Particating in Group Activities: Yes - Medication Management Medication Management Adherence: Yes Assessment - Assessment Merits Inpatient Hospitalization: For Immediate Safety, For Stabilization Inpatient DSM-V Dx: F20.9 Clinical Impression: 32 y.o. single, white male with a recent diagnosis of schizophrenia arrives back at the hospital as a failed discharge less than 10 hours after being released from the [facility], due to continued psychotic delusions and inability to care for himself in a less restrictive setting. Plan - Plan Treatment Plan: Name: WILBERTO RAMIREZ Birthdate: 1985 [id number] We have changed him from aripiprazole back to risperidone, which we have titrated to 3mg nightly. Also receiving benztropine and lorazepam due to EPS. Continue to treat on the inpatient unit. Continued Medication Management: Different Medication Medications: Current Medications Acetaminophen (Tylenol Tab*) 650 mg PO Q4H PRN PRN Reason: PAIN or TEMP > 101 F Last Admin: 03/08/18 11:43 Dose: 650 mg Al Hydrox/Mg Hydrox/Simethicone (Maalox Plus*) 30 ml PO Q4H PRN PRN Reason: INDIGESTION Benztropine Mesylate (Cogentin Tab*) 1 mg PO BID [facility] Last Admin: 03/10/18 08:23 Dose: 1 mg Lorazepam (Ativan Tab(*)) 0.5 mg PO TID PRN PRN Reason: ANXIETY Last Admin: 03/10/18 08:24 Dose: 0.5 mg Multivitamins (Theragran Tab*) 1 tab PO DAILY [facility] Last Admin: 03/10/18 08:23 Dose: 1 tab Risperidone (Risperdal*) 3 mg PO BEDTIME [facility] Last Admin: 03/09/18 21:41 Dose: 3 mg - Discharge Plan Discharge Plan: Inpatient Hospitalization
[2018-03-10] MEDS: risperiDONE TAB* 3 MG PO SCH (20:19)
[2018-03-11] MEDS: LORazepam TAB(*) 0.5 MG PO PRN ×3 (08:16→18:51)
[2018-03-11] MEDS: Vitamin THERAPEUTIC TAB PO SCH (08:16)
[2018-03-11] MEDS: Benztropine TAB* 1 MG PO SCH ×2 (08:16→21:49)
[2018-03-11] MEDS: risperiDONE TAB* 3 MG PO SCH (21:49)
[2018-03-12] MEDS: LORazepam TAB(*) 0.5 MG PO PRN ×3 (08:30→18:34)
[2018-03-12] MEDS: Benztropine TAB* 1 MG PO SCH ×2 (08:31→21:01)
[2018-03-12] MEDS: Vitamin THERAPEUTIC TAB PO SCH (08:31)
[2018-03-12] MEDS: risperiDONE TAB* 3 MG PO SCH (21:01)
[2018-03-13] MEDS: Benztropine TAB* 1 MG PO SCH ×2 (08:51→21:06)
[2018-03-13] MEDS: Vitamin THERAPEUTIC TAB PO SCH (08:51)
[2018-03-13] MEDS: LORazepam TAB(*) 0.5 MG PO PRN ×3 (08:51→18:13)
--- NOTE | 2018-03-13 12:24 | PN ---
Subjective - Subjective Date of Service: 03/13/18 Service Type: 43121 Hosp care 15 min low complexity Subjective: WILBERTO continues to be anxious and pacing on the unit. He tells me that the delusions of persecution are still present, although he uses books and social activities on the unit to distract himself. He has been utilizing lorazepam frequently due to anxiety. He denies SI or HI. He is observed talking to himself in the [place] at times. Objective - Appearance Appearance: Obese Dysmorphic Features: No Hygiene: Normal Grooming: Fairly Well Kept - Behavior Psychomotor Activities: Abnormal-Increased Exhibits Abnormal Movement: No - Attitude and Relatedness Attitude and Relatedness: Cooperative Eye Contact: Fair - Speech Quality: Unpressured Latencies: Normal Quantity: Terse - Mood Patient's Decription of Mood: "Anxious" - Affect Observed Affect: Unvariable Affect Consistent with: Euthymia - Thought Process Patient's Thought Process: Coherent Thought Content: Yes Paranoid Ideation, No Passive Wish, No Suicidal Planning, No Homicidal Ideation - Sensorium Experiencing Hallucinations: Yes Type of Hallucinations: Visual: No, Auditory: Yes, Command: No - Level of Consciousness Level of Consciousness: Alert Orientation: Yes Intact, Yes Orientated to Time, Yes Orientated to Place, Yes Orientated to Person - Impulse Control Impulse Control: Tenuous - Insight and Judgement Insight and Judgement: Fair - Group Participation Particating in Group Activities: Yes - Medication Management Medication Management Adherence: Yes Assessment - Assessment Merits Inpatient Hospitalization: For Immediate Safety, For Stabilization Inpatient DSM-V Dx: F20.9 Clinical Impression: 32 y.o. single, white male with a recent diagnosis of schizophrenia arrives back at the hospital as a failed discharge less than 10 hours after being released [facility] the [facility], due to continued psychotic delusions and inability to care for himself in a less restrictive setting. Plan - Plan Treatment Plan: Name: WILBERTO RAMIREZ Birthdate: 1985 [id number] We have changed him from aripiprazole back to risperidone, which we have titrated to 3mg nightly. Will increase risperidone to 2mg PO BID and start a trial of propranolol 20mg PO BID. Also receiving benztropine and lorazepam due to EPS. Continue to treat on the inpatient unit. Continued Medication Management: Different Medication Medications: Current Medications Acetaminophen (Tylenol Tab*) 650 mg PO Q4H PRN PRN Reason: PAIN or TEMP > 101 F Last Admin: 03/08/18 11:43 Dose: 650 mg Al Hydrox/Mg Hydrox/Simethicone (Maalox Plus*) 30 ml PO Q4H PRN PRN Reason: INDIGESTION Benztropine Mesylate (Cogentin Tab*) 1 mg PO BID [facility] Last Admin: 03/13/18 08:51 Dose: 1 mg Lorazepam (Ativan Tab(*)) 0.5 mg PO TID PRN PRN Reason: ANXIETY Last Admin: 03/13/18 08:51 Dose: 0.5 mg Multivitamins (Theragran Tab*) 1 tab PO DAILY [facility] Last Admin: 03/13/18 08:51 Dose: 1 tab - Discharge Plan Discharge Plan: Inpatient Hospitalization
[2018-03-13] MEDS: Propranolol TAB* 20 MG PO SCH (21:06)
[2018-03-13] MEDS: risperiDONE TAB* 2 MG PO SCH (21:06)
[2018-03-14] MEDS: Propranolol TAB* 20 MG PO SCH (08:47)
[2018-03-14] MEDS: Benztropine TAB* 1 MG PO SCH ×2 (08:47→20:27)
[2018-03-14] MEDS: risperiDONE TAB* 2 MG PO SCH (08:47)
[2018-03-14] MEDS: LORazepam TAB(*) 0.5 MG PO PRN ×4 (08:48→20:31)
[2018-03-14] MEDS: Vitamin THERAPEUTIC TAB PO SCH (08:48)
--- NOTE | 2018-03-14 10:34 | PN ---
Subjective - Subjective Date of Service: 03/14/18 Service Type: 28088 Hosp care 15 min low complexity Subjective: WILBERTO continues to be grossly symptomatic from psychosis. He is often still observed talking to himself in the hallways and milieu area. On exam he reports continued fixation with satellites and the delusional beliefs that they are threatening him and communicating through his body. These thoughts lead to anxiety and panic, which are abated somewhat with lorazepam and reading books. He is tolerating medications well. Objective - Appearance Appearance: Obese Dysmorphic Features: No Hygiene: Normal Grooming: Fairly Well Kept - Behavior Psychomotor Activities: Normal Exhibits Abnormal Movement: No - Attitude and Relatedness Attitude and Relatedness: Cooperative Eye Contact: Fair - Speech Quality: Unpressured Latencies: Normal Quantity: Appropriate - Mood Patient's Decription of Mood: "Anxious" - Affect Observed Affect: Unvariable Affect Consistent with: Dysphoria - Thought Process Patient's Thought Process: Coherent, Circumstantial Thought Content: Yes Paranoid Ideation, No Passive Wish, No Suicidal Planning, No Homicidal Ideation - Sensorium Experiencing Hallucinations: No, Sensorium is Clear Type of Hallucinations: Visual: No, Auditory: Yes, Command: No - Level of Consciousness Level of Consciousness: Alert Orientation: Yes Intact, Yes Orientated to Time, Yes Orientated to Place, Yes Orientated to Person - Impulse Control Impulse Control: Tenuous - Insight and Judgement Insight and Judgement: Fair - Group Participation Particating in Group Activities: Yes - Medication Management Medication Management Adherence: Yes Assessment - Assessment Merits Inpatient Hospitalization: For Immediate Safety, For Stabilization Inpatient DSM-V Dx: F20.9 Clinical Impression: 32 y.o. single, white male with a recent diagnosis of schizophrenia arrives back at the hospital as a failed discharge less than 10 hours after being released [facility] the [facility], due to continued psychotic delusions and inability to care for himself in a less restrictive setting. Plan - Plan Treatment Plan: Name: WILBERTO RAMIREZ Birthdate: 1985 [id number] The patient remains psychotic at this time. We have changed him from aripiprazole back to risperidone, which we have titrated to 2mg PO BID. Will increase risperidone to 3mg PO BID and increase propranolol to 30mg PO BID. Also receiving benztropine 1mg PO BID for EPS. Continue to treat on the inpatient unit. Continued Medication Management: Different Medication Medications: Current Medications Acetaminophen (Tylenol Tab*) 650 mg PO Q4H PRN PRN Reason: PAIN or TEMP > 101 F Last Admin: 03/08/18 11:43 Dose: 650 mg Al Hydrox/Mg Hydrox/Simethicone (Maalox Plus*) 30 ml PO Q4H PRN PRN Reason: INDIGESTION Benztropine Mesylate (Cogentin Tab*) 1 mg PO BID [facility] Last Admin: 03/14/18 08:47 Dose: 1 mg Lorazepam (Ativan Tab(*)) 0.5 mg PO TID PRN PRN Reason: ANXIETY Last Admin: 03/14/18 08:48 Dose: 0.5 mg Multivitamins (Theragran Tab*) 1 tab PO DAILY [facility] Last Admin: 03/14/18 08:48 Dose: 1 tab Propranolol HCl (Inderal Tab*) 20 mg PO BID [facility] Last Admin: 03/14/18 08:47 Dose: 20 mg Risperidone (Risperdal*) 2 mg PO BID [facility] Last Admin: 03/14/18 08:47 Dose: 2 mg - Discharge Plan Discharge Plan: Inpatient Hospitalization
[2018-03-14] MEDS: Propranolol TAB* 10 MG PO SCH (20:27)
[2018-03-14] MEDS: risperiDONE TAB* 3 MG PO SCH (20:33)
[2018-03-15] MEDS: Vitamin THERAPEUTIC TAB PO SCH (08:16)
[2018-03-15] MEDS: LORazepam TAB(*) 0.5 MG PO PRN ×4 (08:17→22:18)
[2018-03-15] MEDS: risperiDONE TAB* 3 MG PO SCH ×2 (08:18→22:18)
[2018-03-15] MEDS: Benztropine TAB* 1 MG PO SCH ×2 (08:19→22:18)
[2018-03-15] MEDS: Propranolol TAB* 10 MG PO SCH ×2 (08:19→22:18)
--- NOTE | 2018-03-15 11:16 | PN ---
Subjective - Subjective Date of Service: 03/15/18 Service Type: 56398 Hosp care 15 min low complexity Subjective: WILBERTO slept well last night and appears to be tolerating his medications well. He continues to complain of distressing, intrusive thoughts about satellites, however, he no longer believes they are trying to harm him. He denies SI or HI. Objective - Appearance Appearance: Well Developed/Nourished, Obese Dysmorphic Features: No Hygiene: Normal Grooming: Fairly Well Kept - Behavior Psychomotor Activities: Normal Exhibits Abnormal Movement: No - Attitude and Relatedness Attitude and Relatedness: Cooperative Eye Contact: Good - Speech Quality: Unpressured Latencies: Normal Quantity: Appropriate - Mood Patient's Decription of Mood: "Okay" - Affect Observed Affect: Unvariable Affect Consistent with: Euthymia - Thought Process Patient's Thought Process: Coherent, Circumstantial Thought Content: Yes Paranoid Ideation, No Passive Wish, No Suicidal Planning, No Homicidal Ideation - Sensorium Experiencing Hallucinations: No, Sensorium is Clear Type of Hallucinations: Visual: No, Auditory: Yes, Command: No - Level of Consciousness Level of Consciousness: Alert Orientation: Yes Intact, Yes Orientated to Time, Yes Orientated to Place, Yes Orientated to Person - Impulse Control Impulse Control: Tenuous - Insight and Judgement Insight and Judgement: Fair - Group Participation Particating in Group Activities: No - Medication Management Medication Management Adherence: Yes Assessment - Assessment Merits Inpatient Hospitalization: For Immediate Safety, For Stabilization Inpatient DSM-V Dx: F20.9 Clinical Impression: 32 y.o. single, white male with a recent diagnosis of schizophrenia arrives back at the hospital as a failed discharge less than 10 hours after being released from the [facility], due to continued psychotic delusions and inability to care for himself in a less restrictive setting. Plan - Plan Treatment Plan: Name: WILBERTO RAMIREZ Birthdate: 1985 [id number] The patient remains psychotic at this time. We have changed him from aripiprazole back to risperidone, which we have titrated to 3mg PO BID. He is also on propranolol to 30mg PO BID for anxiety, and benztropine 1mg PO BID for EPS. Continue to treat on the inpatient unit. Continued Medication Management: Different Medication Medications: Current Medications Acetaminophen (Tylenol Tab*) 650 mg PO Q4H PRN PRN Reason: PAIN or TEMP > 101 F Last Admin: 03/08/18 11:43 Dose: 650 mg Al Hydrox/Mg Hydrox/Simethicone (Maalox Plus*) 30 ml PO Q4H PRN PRN Reason: INDIGESTION Benztropine Mesylate (Cogentin Tab*) 1 mg PO BID [facility] Last Admin: 03/15/18 08:19 Dose: 1 mg Lorazepam (Ativan Tab(*)) 0.5 mg PO TID PRN PRN Reason: ANXIETY Last Admin: 03/15/18 08:17 Dose: 0.5 mg Multivitamins (Theragran Tab*) 1 tab PO DAILY [facility] Last Admin: 03/15/18 08:16 Dose: 1 tab Propranolol HCl (Inderal Tab*) 30 mg PO BID [facility] Last Admin: 03/15/18 08:19 Dose: 30 mg Risperidone (Risperdal*) 3 mg PO BID [facility] Last Admin: 03/15/18 08:18 Dose: 3 mg - Discharge Plan Discharge Plan: Inpatient Hospitalization
--- NOTE | 2018-03-15 16:19 | PN ---
[facility]: Group Therapy Note - Service Type Service Type: [id number] Group Psychotherapy - Medication Education group: Patient present and attentive. Presented with flat affect that did not vary with discussion. Noted to respond to internal stimuli.
[2018-03-16] MEDS: risperiDONE TAB* 3 MG PO SCH ×2 (08:08→20:35)
[2018-03-16] MEDS: Vitamin THERAPEUTIC TAB PO SCH (08:08)
[2018-03-16] MEDS: Propranolol TAB* 10 MG PO SCH ×2 (08:08→20:35)
[2018-03-16] MEDS: Benztropine TAB* 1 MG PO SCH ×2 (08:09→20:35)
[2018-03-16] MEDS: LORazepam TAB(*) 0.5 MG PO PRN ×3 (08:09→18:00)
--- NOTE | 2018-03-16 08:50 | PN ---
Subjective - Subjective Date of Service: 03/16/18 Service Type: 11587 Hosp care 15 min low complexity Subjective: WILBERTO is feeling better. His delusions about satellites have decreased in intensity and he is less frequently responding to internal stimuli. He is denying SI or HI and is OK with being discharged home tomorrow. Objective - Appearance Appearance: Obese Dysmorphic Features: No Hygiene: Normal Grooming: Well Kept - Behavior Psychomotor Activities: Normal Exhibits Abnormal Movement: No - Attitude and Relatedness Attitude and Relatedness: Cooperative Eye Contact: Good - Speech Quality: Unpressured Latencies: Normal Quantity: Appropriate - Mood Patient's Decription of Mood: "Okay" - Affect Observed Affect: Unvariable Affect Consistent with: Euthymia - Thought Process Patient's Thought Process: Coherent Thought Content: Yes Paranoid Ideation, No Passive Wish, No Suicidal Planning, No Homicidal Ideation - Sensorium Experiencing Hallucinations: No, Sensorium is Clear Type of Hallucinations: Visual: No, Auditory: No, Command: No - Level of Consciousness Level of Consciousness: Alert Orientation: Yes Intact, Yes Orientated to Time, Yes Orientated to Place, Yes Orientated to Person - Impulse Control Impulse Control: Tenuous - Insight and Judgement Insight and Judgement: Fair - Group Participation Particating in Group Activities: Yes - Medication Management Medication Management Adherence: Yes Assessment - Assessment Merits Inpatient Hospitalization: Consolidate Improvements, Pending Safe DC Plan Inpatient DSM-V Dx: F20.9 Clinical Impression: 32 y.o. single, white male with a recent diagnosis of schizophrenia arrives back at the hospital as a failed discharge less than 10 hours after being released from the [facility], due to continued psychotic delusions and inability to care for himself in a less restrictive setting. Plan - Plan Treatment Plan: Name: WILBERTO RAMIREZ Birthdate: 1985 [id number] The patient is improving. We have changed him from aripiprazole back to risperidone, which we have titrated to 3mg PO BID. He is also on propranolol to 30mg PO BID for anxiety, and benztropine 1mg PO BID for EPS. Target discharge for tomorrow, March 17. Continued Medication Management: Different Medication Medications: Current Medications Acetaminophen (Tylenol Tab*) 650 mg PO Q4H PRN PRN Reason: PAIN or TEMP > 101 F Last Admin: 03/08/18 11:43 Dose: 650 mg Al Hydrox/Mg Hydrox/Simethicone (Maalox Plus*) 30 ml PO Q4H PRN PRN Reason: INDIGESTION Benztropine Mesylate (Cogentin Tab*) 1 mg PO BID [facility] Last Admin: 03/16/18 08:09 Dose: 1 mg Lorazepam (Ativan Tab(*)) 0.5 mg PO TID PRN PRN Reason: ANXIETY Last Admin: 03/16/18 08:09 Dose: 0.5 mg Multivitamins (Theragran Tab*) 1 tab PO DAILY [facility] Last Admin: 03/16/18 08:08 Dose: 1 tab Propranolol HCl (Inderal Tab*) 30 mg PO BID [facility] Last Admin: 03/16/18 08:08 Dose: 30 mg Risperidone (Risperdal*) 3 mg PO BID [facility] Last Admin: 03/16/18 08:08 Dose: 3 mg - Discharge Plan Discharge Plan: Outpatient Follow Up Outpatient Program: Carolyn Barnard [facility]
[2018-03-17 07:45] VITALS: BP 134/89
[2018-03-17] MEDS: Propranolol TAB* 10 MG PO SCH (08:31)
[2018-03-17] MEDS: risperiDONE TAB* 3 MG PO SCH (08:31)
[2018-03-17] MEDS: LORazepam TAB(*) 0.5 MG PO PRN ×2 (08:31→12:59)
[2018-03-17] MEDS: Benztropine TAB* 1 MG PO SCH (08:31)
[2018-03-17] MEDS: Vitamin THERAPEUTIC TAB PO SCH (08:31)
[2018-03-17] MEDS ORDERED: Propranolol TAB* 20 MG PO SCH (21:00)
--- NOTE | 2018-03-18 07:51 | DS ---
DISCHARGE SUMMARY: DATE OF ADMISSION: 03/04/18 DATE OF DISCHARGE: 03/17/18 DISCHARGE DIAGNOSES: As follows: [place] I: Schizophrenia. [place] II: Deferred. CONDITION AT THE TIME OF DISCHARGE: Improved. The patient appears to be back to psychiatric baseline. He is tolerating the reintroduction of risperidone. His anxiety is much better on propranolol and his extrapyramidal side effects are well controlled with benztropine. The patient denies any side effects from his medications. He has been calm and cooperative and safe on all checks. We noticed that the patient is much more social, interacting with peers, going more to groups. He does not display any overt signs of psychosis and is not making delusional statements. I did ask him specifically if he was still continuing to have delusional preoccupations with satellites and fears of radiation, poisoning, and he denied these. He states that he is sleeping better , he is less anxious, and he feels that he is ready to receive treatment in the outpatient setting. In fact, we have made outpatient followup appointments and he is agreeable with following up at [facility] where he sees Dr. Olaf Dee. His parents have been contacted and they are in agreement with the discharge plan and will be arriving to provide transportation home for the patient. MENTAL STATUS EXAM AT THE TIME OF DISCHARGE: The patient is a young white male , somewhat overweight with dark hair who is clean and well groomed. He is shy, but makes fairly good eye contact and is easy to establish a rapport with. Speech appears to have normal rate, tone, and volume. Mood is euthymic with a somewhat blunted affect. Thought process is linear. Thought content is significant for his desire to be discharged from the hospital. He is denying any further delusional ideation. The patient also denies suicidal or homicidal thoughts. He denies auditory or visual hallucinations. Insight and judgment appeared to be fair given his willingness to follow up with outpatient treatment in the community. Cognitively, he is awake and alert with what would appear to be an average intellect. LABORATORY STUDIES: Are as follows: The patient's metabolic status was checked on 03/05/18. At that time, his hemoglobin A1c was 5.3%, triglycerides 87, cholesterol 134, LDL cholesterol 72, HDL cholesterol 45.1. DISCHARGE INSTRUCTIONS TO THE PATIENT: Are as follows: A. Medications. 1. The patient is taking risperidone 3 mg p.o. b.i.d. 2. He takes benztropine 1 mg p.o. b.i.d. 3. Propranolol 20 mg p.o. b.i.d. 4. Lorazepam 0.5 mg every 8 hours as a p.r.n. for anxiety. B. Diet is regular. C. Activities as tolerated. The patient is a non-smoker. There are no laboratory or diagnostic studies pending at the time of discharge. D. Followup care. The patient will be following up with Dr. Olaf Dee at the [facility] on 03/23/18 at 2:30 p.m. He also has an appointment with therapist Stephan Syed on 03/23/18 at 3:30 p.m. In addition, a [employer] referral has been made and he will have a medication care manager assigned to him who will be reaching out to him over the phone. E. Substance abuse followup is non-applicable. HOSPITAL COURSE: A. Reason for admission. The patient is a 32-year-old single white male with a recent history of schizophrenia diagnosis, who was just [facility] the [facility] on [facility], who returned to the hospital within 24 hours, complaining vociferously about delusions of satellites, raining down, radiation poisoning on to him. He went onto state that the satellites were communicating through his arms. He was restless, anxious, diaphoretic, and his parents did not believe that he was safe to remain in their home and he was brought back to the emergency room for that reason. The patient continued to be odd and delusionally preoccupied and it was felt that he would benefit from further inpatient care. B. Psychiatric treatment rendered. The patient was readmitted to the adult behavioral health unit placed on every 15-minute checks for his own safety. It was clear to me that aripiprazole had limitations in terms of controlling his psychotic symptoms. For this reason, this was discontinued and he was placed back on risperidone 1 mg p.o. daily. We began titrating this because his symptoms continued unabated and he did not get complete resolution of these delusions and auditory hallucinations until the does reached 3 mg twice daily. Due to fears of extrapyramidal side effects, we did start a trial of benztropine 1 mg twice daily, which was well tolerated. The patient continued to have anxiety, which was marginally improved by p.r.n. lorazepam. We added propranolol 20 mg twice daily to his standing regimen in order to reduce anxiety and to reduce the risk of akathisia. This combination of medications did quite well and gradually the patient became less delusionally focused. He was able to start attending groups making friendships with peers, receiving visitation from his parents, and talking about future in which he is engaged in trying to find work in the community and he would like to get his own apartment away from his mother's. The family is agreeable with the discharge plan at this time. Mr. Weiner is denying suicidal or homicidal ideations and we feel that he would be safe to receive treatment in a less restrictive setting. He is tolerating his medications well and agreeable to receiving followup treatment at the outpatient clinic. [id number]/CPS #: [id number] MTDD
== END 2018-03-17 17:15 | disposition home or self-care (01) | DRG 750 ==
LOC: ED 19:27 → BSU 03-04 05:14
PROVIDERS: ADMIT Psychiatry & Neurology Psychiatry; ATTEND Psychiatry & Neurology Psychiatry
PROC: GZHZZZZ Group Psychotherapy (ICD-10-PCS; principal; 2018-03-04)
DX: F20.0 Paranoid schizophrenia (principal); F41.9 Anxiety disorder, unspecified; G25.71 Drug induced akathisia; E66.9 Obesity, unspecified; Z68.30 Body mass index [BMI] 30.0-30.9, adult
CPT/HCPCS: 36415; 80053; 80061; 80320; 80329; 83036; 84443; 85025; 90853; 99222; 99231; 99238; 99284; A9270-GY; G0480

== ENCOUNTER 2018-06-17 03:47 | Emergency (ER) | payer OTHER ==
[2018-06-17] MEDS ORDERED: Nicotine Inhaler* 10 MG AMP INH PRN (03:59)
--- NOTE | 2018-06-17 04:05 | ED ---
Psychiatric Complaint - HPI Summary HPI Summary: This patient is a 32 year old M presenting to [facility] requesting a mental health evaluation due to schizophrenic delusions of having radiation from satellites to his thyroids. He states he believes he will from respiratory problems. He denies SI. - History Of Current Complaint Chief Complaint: EDMentalHealth Hx Obtained From: Patient Onset/Duration: Still Present Timing: Constant Aggravating Factor(s): Nothing Associated Signs And Symptoms: Positive: Hallucinating Related History: Positive For: Prior Psychiatric Issues Has Suicidal: Denies: Thoughts - Allergies/Home Medications Allergies/Adverse Reactions: Allergies Allergy/AdvReac Type Severity Reaction Status Date / Time No Known Allergies Allergy Verified 06/17/18 14:10 PMH/Surg Hx/FS Hx/Imm Hx Cardiovascular History: Denies: Hx Hypotension Sensory History: Reports: Hx Contacts or Glasses Denies: Hx Deafness, Hx Hearing Aid Opthamlomology History: Reports: Hx Contacts or Glasses Neurological History: Reports: Hx Headaches Psychiatric History: Reports: Hx Anxiety, Hx Depression, Hx Inpatient Treatment , Hx Community Mental Health Tx, Hx Schizophrenia Denies: Hx Eating Disorder, Hx of Violent Episodes Against Others - Cancer History Cancer Type, Location and Year: none - Surgical History Surgery Procedure, Year, and Place: none Infectious Disease History: No Infectious Disease History: Denies: Traveled Outside the [place] in Last 30 Days - Family History Known Family History: Negative: Diabetes - Social History Alcohol Use: None Substance Use Type: Reports: None Smoking Status (MU): Never Smoked Tobacco Review of Systems Negative: Fever Positive: Other - dellusions. Negative: Depressed All Other Systems Reviewed And Are Negative: Yes Physical Exam - Summary Physical Exam Summary: Appearance: Well-appearing, Well-nourished, lying in bed comfortable Skin: Warm, dry, no obvious rash Eyes: sclera anicteric, no conjunctival pallor ENT: mucous membranes moist Neck: deferred Respiratory: No signs of respiratory distress Cardiovascular: Appears well perfused, pulses are nml Abdomen: deferred Musculoskeletal: Moving all 4 extremities without obvious discomfort Neurological: Awake and alert, mentation is normal, speech is fluent and appropriate Psychiatric: affect is normal, does not appear anxious or depressed, Delusion of radiation to thyroids from satellites Triage Information Reviewed: Yes Vital Signs On Initial Exam: Initial Vitals Temp Pulse Resp BP Pulse Ox 98.2 F 90 20 129/91 99 06/17/18 03:49 06/17/18 03:49 06/17/18 03:49 06/17/18 03:49 06/17/18 03:49 Vital Signs Reviewed: Yes Diagnostics - Vital Signs Vital Signs Temp Pulse Resp BP Pulse Ox 06/17/18 03:49 98.2 F 90 20 129/91 99 - Laboratory Result Diagrams: 06/17/18 04:11 06/17/18 04:11 Lab Statement: Any lab studies that have been ordered have been reviewed, and results considered in the medical decision making process. Course/Dx - Course Course Of Treatment: 32 year old M presenting to [facility] requesting a mental health evaluation due to schizophrenic delusions of having radiation from satellites to his thyroids. He states he believes he will from respiratory problems. He denies SI. Bloodwork and toxicology obtained. Patient is given nicotine inhaler. Patient is cleared for mental health evaluation. After mental health evaluation patient is discharged. - Differential Dx/Clinical Impression Provider Diagnosis: Schizophrenia Discharge - Sign-Out/Discharge Documenting (check all that apply): Patient Departure - discharge - Discharge Plan Condition: Stable Disposition: HOME Referrals: [facility] [Outside] (Resume your outpatient therapy with Stephan Syed RN and Dr. Dee. ) Mira Hamilton DO [Primary Care Provider] - - Billing Disposition and Condition Condition: STABLE Disposition: Home - Attestation Statements Document Initiated by Tyrell: Yes Documenting Scribe: Sofie Paulino Provider For Whom Tyrell is Documenting (Include Credential): Manoj Main MD Scribe Attestation: ISofie, scribed for Manoj Main MD on 06/17/18 at 1833. Scribe Documentation Reviewed: Yes Provider Attestation: The documentation as recorded by the Sofie salazar accurately reflects the service I personally performed and the decisions made by me, Manoj Main MD Status of Scribe Document: Viewed
[2018-06-17 04:17] LABS: ABS Basophils 0 10^3/ul (0-0.2); ABS Eosinophils 0.2 10^3/ul (0-0.6); ABS Lymphocytes 3.7 10^3/ul (1.0-4.8); ABS Monocytes 0.6 10^3/ul (0-0.8); ABS Neutrophils 5.1 10^3/ul (1.5-7.7); ABS Nucleated RBC 0 10^3/ul; Eosinophil % 2.1 %; Hematocrit 45 % (42-52); Hemoglobin 15.2 g/dl (14.0-18.0); Mean Corpuscular HGB Conc 34 g/dl (31-36); Mean Corpuscular Hemoglobin 31 pg (27-31); Mean Corpuscular Volume 91 fL (80-94); Mean Platelet Volume 9.1 fL (7.4-10.4); Nucleated Red Blood Cells % 0; Platelet Count 277 10^3/ul (150-450); Red Blood Count 4.88 10^6/ul (4.00-5.40); Red Cell Distribution Width 13 % (10.5-15); White Blood Count 9.7 10^3/ul (3.5-10.8)
[2018-06-17 04:18] LABS: Urine Appearance Cloudy; Urine Bilirubin Negative (Negative); Urine Blood Negative (Negative); Urine Color Yellow; Urine Glucose Negative (Negative); Urine Ketones Negative (Negative); Urine Nitrite Negative (Negative); Urine Protein Negative (Negative); Urine Specific Gravity 1.013 (1.010-1.030); Urine Urobilinogen Negative (Negative)
[2018-06-17 04:34] LABS: ALT 19 U/L (7-52); Alkaline Phosphatase 58 U/L (34-104); BUN/Creatinine Ratio 8.2 (8-20); Blood Urea Nitrogen 7 mg/dL (6-24); CO2 Carbon Dioxide 29 mmol/L (22-32); Calcium 9.9 mg/dL (8.6-10.3); Chloride 103 mmol/L (101-111); EGFR Non-African American 104.5 (>60); Globulin 2.5 g/dL (2-4); Glucose 108 mg/dL (70-100); Sodium 140 mmol/L (135-145); Total Protein 7.5 g/dL (6.4-8.9)
--- OUTSIDE RECORDS SUMMARY | 2018-06-17 04:50 | XMS REPORT | Continuity of Care Document ---
:1985 External Reference #:[id number] Author Name Tg Catalan Care Team Providers Name Role Phone Mira Hamilton DO Primary Care Physician Unavailable Payers Type Date Identification Numbers Payment Provider Subscriber Policy Number: [id number] Valente Skaggs Husam PayID: [id number] [address] [place] [address] Policy Number: [id number] [facility] Giles Husam PayID: [id number] [address] [place] [address] Advance Directives Description No Information Available Problems Description No Information Family History Description No Information Available Social History Type Date Description Comments Sex Unknown Tobacco Use Start: Unknown Patient has never smoked Smoking Status Reviewed: 06/07/18 Patient has never smoked Allergies, Adverse Reactions, Alerts Description No Information Medications Medication Date Status Form Strength Qnty SIG Indications Ordering Provider Vraylar / Active Capsules 4.5mg 1 daily Unknown 00 Daily Multiple Active Tablets 1 by Unknown Vitamins 00 mouth every day Immunizations Description No Information Available Vital Signs Date Vital Result Comment 06/07/2018 12:04pm Weight 197.00 lb Heart Rate 74 /min BP Systolic 130 mmHg BP Diastolic 88 mmHg Respiratory Rate 16 /min Body Temperature 98.0 F Pain Level 6 thoracic O2 % BldC Oximetry 98 % Results Description No Information Available Procedures Date Code Description Status 06/07/2018 60689 EKG Tracing & Interpretation Completed Encounters Description No Information Available Plan of Treatment Future Appointment(s):06/19/2018 11:40 am - Mira Hamilton DO at [facility]06/07/2018 - ADELAIDE Toure06.02 Shortness of breath
[2018-06-17 05:04] LABS: Alcohol < 10 mg/dL (<10); Salicylate < 2.50 mg/dL (<30)
[2018-06-17 05:11] LABS: Barbiturates Urine Screen None Detected (None Detect); Benzodiazepine Urine Screen None Detected (None Detect); Urine Cannabinoids Screen None Detected (None Detect)
[2018-06-17 05:20] LABS: TSH (Thyroid Stimulating Horm) 2.21 mcIU/mL (0.34-5.60)
[2018-06-17 05:49] LABS: AST 16 U/L (13-39); Anion Gap 8 mmol/L (2-11); Potassium 4.1 mmol/L (3.5-5.0)
[2018-06-17 06:28] VITALS: BP 121/69
== END 2018-06-17 06:27 | disposition home or self-care (01) ==
LOC: ED 03:47
DX: F20.9 Schizophrenia, unspecified (principal); R44.3 Hallucinations, unspecified; F22 Delusional disorders
CPT/HCPCS: 36415; 80053; 80307; 80320; 80329; 81003; 84443; 85025; 99284; G0480

== ENCOUNTER 2018-06-17 13:53 | Inpatient (IN) | payer OTHER ==
[2018-06-17 14:55] LABS: ABS Basophils 0 10^3/ul (0-0.2); ABS Eosinophils 0 10^3/ul (0-0.6); ABS Lymphocytes 2.1 10^3/ul (1.0-4.8); ABS Monocytes 0.7 10^3/ul (0-0.8); ABS Neutrophils 8.3 10^3/ul (1.5-7.7); ABS Nucleated RBC 0 10^3/ul; Eosinophil % 0.4 %; Hematocrit 44 % (42-52); Hemoglobin 15.1 g/dl (14.0-18.0); Lymphocyte % 18.7 %; Mean Corpuscular HGB Conc 35 g/dl (31-36); Mean Corpuscular Hemoglobin 31 pg (27-31); Mean Corpuscular Volume 91 fL (80-94); Mean Platelet Volume 9.2 fL (7.4-10.4); Nucleated Red Blood Cells % 0; Platelet Count 276 10^3/ul (150-450); Red Blood Count 4.83 10^6/ul (4.00-5.40); Red Cell Distribution Width 13 % (10.5-15); White Blood Count 11.1 10^3/ul (3.5-10.8)
--- NOTE | 2018-06-17 14:56 | ED ---
Psychiatric Complaint - HPI Summary HPI Summary: A 32 y/o male presents to the ED c/o trouble sleeping. Additionally c/o SOB when he tried sleeping. In the ED room, the patient has a pulse of 107 BPM and O2 saturation of 96%. As per triage, "pt states he wants to stay in hospital over night because he is scared he is going to in his sleep. pt says he thinks he is going to in his sleep because he could feel himself stop breathing while he is sleeping. pt says he also thinks he has radiation poisoning because of a hate crime. pt says he has schizophrenia, pt says he is taking schizophrenia medication". According to the patient, he has been experiencing sleep apnea for the past 2 weeks, getting only about 2 hours of sleep per night. He stated that he cannot go to sleep because he has a fear that he is going to . He stated that he was SOB one time when he was sleeping which scared him even further. Patient stated that he does have SI, and "due to this aspect" he would like to be admitted to [facility]. Patient stated that he is so scared and that he feels so bad that he thinks he might hurt himself, but has no plan. Patient has a history of schizophrenia and takes his medications. No other medications at this time. Home Medications Medication Instructions Recorded Confirmed Type Vraylar 4.5 mg PO DAILY 06/17/18 06/17/18 History - History Of Current Complaint Chief Complaint: EDMentalHealth Time Seen by Provider: 06/17/18 14:27 Hx Obtained From: Patient Onset/Duration: Sudden Onset, Lasting Weeks, Still Present Timing: Constant Severity Currently: None Character: Fearful Aggravating Factor(s): Nothing Alleviating Factor(s): Nothing Associated Signs And Symptoms: Positive: Paranoid Behavior Related History: Positive For: Prior Psychiatric Issues Has Suicidal: Reports: Thoughts. Denies: With A Plan - Allergies/Home Medications Allergies/Adverse Reactions: Allergies Allergy/AdvReac Type Severity Reaction Status Date / Time No Known Allergies Allergy Verified 06/17/18 14:10 Home Medications: Home Medications Vraylar 4.5 mg PO DAILY 06/17/18 [History Confirmed 06/17/18] PMH/Surg Hx/FS Hx/Imm Hx Cardiovascular History: Denies: Hx Hypotension Sensory History: Reports: Hx Contacts or Glasses Denies: Hx Deafness, Hx Hearing Aid Opthamlomology History: Reports: Hx Contacts or Glasses Neurological History: Reports: Hx Headaches Psychiatric History: Reports: Hx Anxiety, Hx Depression, Hx Inpatient Treatment , Hx Community Mental Health Tx, Hx Schizophrenia Denies: Hx Eating Disorder, Hx of Violent Episodes Against Others - Cancer History Cancer Type, Location and Year: none - Surgical History Surgery Procedure, Year, and Place: none Infectious Disease History: No Infectious Disease History: Denies: Traveled Outside the [place] in Last 30 Days - Family History Known Family History: Negative: Diabetes - Social History Alcohol Use: None Substance Use Type: Reports: None Smoking Status (MU): Never Smoked Tobacco Review of Systems Negative: Fever Positive: Shortness Of Breath Positive: Other - POSITIVE: FEARFUL, SI WITH NO PLAN All Other Systems Reviewed And Are Negative: Yes Physical Exam - Summary Physical Exam Summary: VITAL SIGNS: Reviewed. GENERAL: Patient is a well-developed and nourished male who is lying comfortable in the stretcher. Patient is not in any acute respiratory distress. HEAD AND FACE: No signs of trauma. No ecchymosis, hematomas or skull depressions. No sinus tenderness. EYES: PERRLA, EOMI x 2, No injected conjunctiva, no nystagmus. EARS: Hearing grossly intact. Ear canals and tympanic membranes are within normal limits. MOUTH: Oropharynx within normal limits. NECK: Supple, trachea is midline, no adenopathy, no JVD, no carotid bruit, no c- spine tenderness, neck with full ROM. CHEST: Symmetric, no tenderness at palpation LUNGS: Clear to auscultation bilaterally. No wheezing or crackles. CVS: Regular rate and rhythm, S1 and S2 present, no murmurs or gallops appreciated. ABDOMEN: Soft, non-tender. No signs of distention. No rebound no guarding, and no masses palpated. Bowel sounds are normal. EXTREMITIES: FROM in all major joints, no edema, no cyanosis or clubbing. NEURO: Alert and oriented x 3. No acute neurological deficits. Speech is normal and follows commands. SKIN: Dry and warm Triage Information Reviewed: Yes Vital Signs On Initial Exam: Initial Vitals Temp Pulse Resp BP Pulse Ox 98.5 F 81 17 100/85 98 06/17/18 14:06 06/17/18 14:06 06/17/18 14:06 06/17/18 14:06 06/17/18 14:06 Vital Signs Reviewed: Yes Diagnostics - Vital Signs Vital Signs Temp Pulse Resp BP Pulse Ox 06/17/18 14:06 98.5 F 81 17 100/85 98 - Laboratory Result Diagrams: 06/17/18 14:36 06/17/18 14:36 Lab Statement: Any lab studies that have been ordered have been reviewed, and results considered in the medical decision making process. Course/Dx - Course Assessment/Plan: A 32 y/o male presents to the ED c/o trouble sleeping. Additionally c/o SOB when he tried sleeping. In the ED room, the patient has a pulse of 107 BPM and O2 saturation of 96%. As per triage, "pt states he wants to stay in hospital overnight because he is scared he is going to in his sleep. pt says he thinks he is going to in his sleep because he could feel himself stop breathing while he is sleeping. pt says he also thinks he has radiation poisoning because of a hate crime. pt says he has schizophrenia, pt says he is taking schizophrenia medication". According to the patient, he has been experiencing sleep apnea for the past 2 weeks, getting only about 2 hours of sleep per night. He stated that he cannot go to sleep because he has a fear that he is going to . He stated that he was SOB one time when he was sleeping which scared him even further. Patient stated that he does have SI, and "due to this aspect" he would like to be admitted to [facility]. Patient stated that he is so scared and that he feels so bad that he thinks he might hurt himself, but has no plan. Patient has a history of schizophrenia and takes his medications. No other medications at this time. Blood work w/o a significant abnormality. He is medically cleared. He is awaiting for a MHE. Patient is hemodynamically stable and A+O x 3. - Differential Dx/Clinical Impression Provider Diagnosis: Psychosis - Physician Notifications Discussed Care Of Patient With: Lali Webb Time Discussed With Above Provider: 16:07 Instructed by Provider To: Other - ACCEPTS PATIENT FOR ADMISSION. Discharge - Sign-Out/Discharge Documenting (check all that apply): Patient Departure - ADMIT, Sign-Out Patient - WEBB Signing out patient TO: Lali Webb Receiving patient FROM: Devin Lewis - Discharge Plan Condition: Stable Disposition: ADMITTED TO [facility] - Billing Disposition and Condition Condition: STABLE Disposition: Admitted to [facility] - Attestation Statements Document Initiated by Elviaibe: Yes Documenting Scribe: Donal Shahid Provider For Whom Elviaibe is Documenting (Include Credential): Devin Lewis MD Scribe Attestation: IDonal, scribed for Devin Lewis MD on 06/18/18 at 0821. Scribe Documentation Reviewed: Yes Provider Attestation: The documentation as recorded by the elviaibeDonal accurately reflects the service I personally performed and the decisions made by me, Devin Lewis MD Status of Scribe Document: Viewed Attestations Scribe Attestation: IDr. Lewis personally performed the services described in this documentation as scribed in my presence and it is both accurate and complete. User Type: Provider with Scribe Provider Attestation: The documentation recorded by the elviaibtiti accurately reflects the service I personally performed and the decisions made by me.
[2018-06-17 15:08] LABS: Urine Appearance Clear; Urine Bilirubin Negative (Negative); Urine Blood Negative (Negative); Urine Color Yellow; Urine Glucose Negative (Negative); Urine Ketones Negative (Negative); Urine Nitrite Negative (Negative); Urine Protein Negative (Negative); Urine Specific Gravity 1.006 (1.010-1.030); Urine Urobilinogen Negative (Negative)
[2018-06-17 15:35] LABS: Barbiturates Urine Screen None Detected (None Detect); Benzodiazepine Urine Screen None Detected (None Detect); Urine Cannabinoids Screen None Detected (None Detect)
[2018-06-17 15:35] LABS: Acetaminophen < 15 mcg/mL; Alcohol < 10 mg/dL (<10); Salicylate < 2.50 mg/dL (<30)
[2018-06-17 15:42] LABS: TSH (Thyroid Stimulating Horm) 0.93 mcIU/mL (0.34-5.60)
[2018-06-17 16:04] LABS: ALT 18 U/L (7-52); AST 17 U/L (13-39); Alkaline Phosphatase 55 U/L (34-104); Anion Gap 8 mmol/L (2-11); BUN/Creatinine Ratio 4.9 (8-20); Blood Urea Nitrogen 4 mg/dL (6-24); CO2 Carbon Dioxide 27 mmol/L (22-32); Chloride 105 mmol/L (101-111); EGFR African American 133.6 (>60); EGFR Non-African American 110.4 (>60); Globulin 2.5 g/dL (2-4); Glucose 108 mg/dL (70-100); Potassium 3.6 mmol/L (3.5-5.0); Sodium 140 mmol/L (135-145); Total Protein 7.5 g/dL (6.4-8.9)
[2018-06-17] MEDS ORDERED: Al Hydrox/Mg Hydrox/Simet LIQ* 30 ML UDC PO PRN (17:54)
[2018-06-17] MEDS: OLANzapine TAB* 5 MG PO SCH (21:18)
[2018-06-17] MEDS: Acetaminophen TAB* 325 MG PO PRN (21:18)
[2018-06-18 07:39] LABS: HDL Cholesterol 57.4 mg/dL
[2018-06-18] MEDS: Vitamin THERAPEUTIC TAB PO SCH (07:52)
[2018-06-18] MEDS: Divalproex DR TAB(*) 250 MG PO SCH ×2 (15:52→19:59)
--- NOTE | 2018-06-18 17:40 | HP ---
Amended report to remove co-signing physician from report. HISTORY AND PHYSICAL: DATE OF ADMISSION: 06/17/18 IDENTIFYING DATA: WILBERTO is a 32-year-old single, mentally disabled, male who had multiple prior psychiatric hospitalizations on [facility] and his last one was on 03/04/18 due to auditory/visual hallucinations and paranoid delusions. CHIEF COMPLAINT: "I continue to be targeted from the the space by radiation." HISTORY OF PRESENT ILLNESS: WILBERTO presented to the emergency department by walking a long distance with the hope to be admitted and be safe from extraterrestrial forces that have been targeting him. He thought he was being beamed by radiation from man-made satellites in [place]. He can feel the sensation in his head which travels down to his abdomen and chest and other places as a tingling sensation, abdominal sensation or chest compression. He was very fearful that he was going to from this radiation. He also was hearing voices of some dark colored people who were telling him that he was going to be . He was unsure whether he was experiencing visual hallucinations or thinking in his head that those voices are from people with dark complexion. These symptoms were very intense yesterday to a point that he could not stay at home and walked all the way to the emergency room. In the recent past, there were no changes in his psychosocial environment. He was doing fine until all this physical sensations, auditory/visual hallucinations, and paranoia intensified. PAST PSYCHIATRIC HISTORY: As mentioned in HPI, he was hospitalized at least twice before this admission almost under similar circumstances. After stabilization, he was being followed at [facility] by Dr. Dee and Stephan Syed as his therapist. He was discharged on risperidone, but he thought he was experiencing terrible side effects and his doctor switched him to Vraylar 4.5 mg. PAST MEDICAL HISTORY: Unremarkable. ALLERGIES: No known drug allergies. FAMILY PSYCHIATRIC HISTORY: Denies any mental health problem in his family members although his father who was a [place] vet suffered from PTSD and committed suicide when he was in his 60s. He has 1 brother who lives somewhere in the [place]. PERSONAL AND SOCIAL HISTORY: WILBERTO has a masters degree and briefly worked in the [employer] industry; however, could not function well in for long time because of his psychiatric history. He was never , does not have any children, not in any significant relationship at this time. He lives with his parents, which means his mother and stepdad who are very supportive, has been unemployed and receiving SSI, SSD. PHYSICAL EXAMINATION GENERAL: WILBERTO is a healthy-appearing and well-built male, does not appear to be in any physical distress at this time. VITAL SIGNS: His vital signs were all unremarkable with a blood pressure of 100 /85, pulse 81, respirations 17, pulse ox 98, temperature 98.5. HEENT: His head is atraumatic and normocephalic. Full hair. Face also within normal limits with oral cavity clean. Full dentition. Normal pharynx. Eyes: PERRLA. EOMI x2. Clear conjunctivae. Ears: Grossly normal with clean ear canals bilaterally. Intact tympanic membranes bilaterally. NECK: Supple. Midline trachea. No adenopathy or JVD. Normal thyroid gland. CHEST: On auscultation, there was air entry equal bilaterally. No wheezing or crackles. CVS: Heart rate regular, S1 and S2 only. No murmurs or gallops appreciated. ABDOMEN: Soft, nontender. No organomegaly. Positive bowel sounds in 4 quadrants. EXTREMITIES: Within normal range. No cyanosis or clubbing. Joint movements are within normal limits. NEUROLOGICAL: He was alert and oriented to time, place, and person. Cranial nerves II through XII were all grossly intact. No sensory deficits appreciated. LABORATORY DATA: Review of labs shows a WBC count of 11.1, which is slightly higher than normal; hemoglobin 15.1; hematocrit 44; platelet count 276. Serum sodium 140, potassium 3.6, chloride 105, carbon dioxide 27, BUN 4, creatinine 0.81. Rest of the labs were unremarkable with a negative tox screen. MENTAL STATUS EXAMINATION: WILBERTO is alert and oriented to time, place, and person. Appropriately dressed, poorly groomed with poor personal hygiene, making intermittent eye contact. Speech is soft but goal directed. Describes his mood as "okay." Observed affect appears to be dysphoric and restricted. Thought process is mostly logical and goal directed. Thought content has paranoid delusions and ideas of references. Reports of experiencing both auditory and visual hallucinations. Hears a voice of a dark complexion individual telling him that he was going to . Intelligence appears to be average as evidenced by his educational background, vocabulary, and fund of knowledge. Memory functions are intact in all spheres. Insight and judgment impaired. SUMMARY: This 32-year-old mentally disabled, male with 2 prior psychiatric hospitalizations on this unit due to psychosis manifested as both auditory/visual hallucinations and paranoid delusions. Most important is that his paranoia, auditory/visual hallucinations coincides with a bodily sensations starting from his head to the chest and abdomen making his belief that this is a radiation from the man-made satellites in [place]. An MRI done in the past was unremarkable. Now, the question is whether this could be a subclinical temporal lobe epilepsy. DIAGNOSTIC IMPRESSION: Unspecified psychosis, rule out schizophrenia, rule out psychosis secondary to temporal lobe epilepsy. PHYSICAL HEALTH DIAGNOSIS: Rule out epilepsy. TREATMENT RECOMMENDATIONS: WILBERTO will remain hospitalized on [facility] for his safety and diagnostic clarification and stabilization of acute symptoms. His code status will continue to be full. Supportive, milieu, individual, and group therapy will be initiated. Last evening when he came on the unit, I have switched him from Vraylar to Zyprexa 5 mg to start last night with the hope of increasing it gradually as he tolerates. WILBERTO reported this morning that he did not have any issues with the medications. Hence, my plan is to increase the dose as he continues to tolerate. In the meantime, I have also requested for an EEG to see if there is any seizure activity causing some of the sensations and perceptions that he has been experiencing all along. I have also started him on Depakote 250 mg twice a day and I will recommend his assigned psychiatrist on the unit titrate the dose up as he tolerates. Risks, benefits, and alternatives to all these medications that he is being treated on the unit were explained to him. He verbalized his understanding and willing to try. [id number]/[facility] #: [id number] [facility]
[2018-06-18] MEDS: OLANzapine TAB* 5 MG PO SCH (19:59)
[2018-06-19] MEDS: Vitamin THERAPEUTIC TAB PO SCH (08:53)
[2018-06-19] MEDS: Divalproex DR TAB(*) 250 MG PO SCH ×2 (08:53→19:52)
--- NOTE | 2018-06-19 13:11 | PN ---
Subjective - Subjective Date of Service: 06/19/18 Service Type: 89918 Hosp care 15 min low complexity Subjective: WILBERTO continues to struggle with delusions and hallucinations related to unseen others trying to harm him with radiation emitted from satellites in space. He is tolerating medications well thus far. He denies SI or HI here on the unit. Objective - Appearance Appearance: Well Developed/Nourished Dysmorphic Features: No Hygiene: Normal Grooming: Well Kept - Behavior Psychomotor Activities: Normal Exhibits Abnormal Movement: No - Attitude and Relatedness Attitude and Relatedness: Psychotically Related Eye Contact: Fair - Speech Quality: Unpressured Latencies: Normal Quantity: Appropriate - Mood Patient's Decription of Mood: "Anxious" - Affect Observed Affect: Unvariable Affect Consistent with: Dysphoria - Thought Process Patient's Thought Process: Circumstantial Thought Content: Yes Paranoid Ideation, No Passive Wish, No Suicidal Planning, No Homicidal Ideation - Sensorium Experiencing Hallucinations: Yes Type of Hallucinations: Visual: Yes, Auditory: No, Command: No - Level of Consciousness Level of Consciousness: Alert Orientation: Yes Intact, Yes Orientated to Time, Yes Orientated to Place, Yes Orientated to Person - Impulse Control Impulse Control: Tenuous - Insight and Judgement Insight and Judgement: Fair - Group Participation Particating in Group Activities: Yes - Medication Management Medication Management Adherence: Yes Assessment - Assessment Merits Inpatient Hospitalization: For Immediate Safety, For Stabilization Inpatient DSM-V Dx: F20.9 Clinical Impression: 32 y.o. single, white male with a history of schizophrenia self-referred to the hospital due to paranoid delusions, AH, VH and command voices telling him to kill himself. MHU: Problem List - Patient Problems (1) Schizophrenia Current Visit: No Status: Acute Priority: High Code(s): F20.9 - SCHIZOPHRENIA, UNSPECIFIED SNOMED Code(s): 76474760 Plan - Plan Treatment Plan: Name: WILBERTO RAMIREZ Birthdate: 1985 [id number] We have discontinued cariprazine in favor of olanzapine and depakote. Will titrate these doses. Await EEG. Continue inpatient care. Continued Medication Management: Start Medication Medications: Current Medications Acetaminophen (Tylenol Tab*) 650 mg PO Q4H PRN PRN Reason: PAIN or TEMP > 101 F Last Admin: 06/17/18 21:18 Dose: 650 mg Al Hydrox/Mg Hydrox/Simethicone (Maalox Plus*) 30 ml PO Q4H PRN PRN Reason: INDIGESTION Divalproex Sodium (Depakote Dr Tab(*)) 500 mg PO BID [facility]1983 Multivitamins (Theragran Tab*) 1 tab PO DAILY INA Last Admin: 06/19/18 08:53 Dose: 1 tab Olanzapine (Zyprexa Tab*) 10 mg PO BEDTIME INA - Discharge Plan Discharge Plan: Inpatient Hospitalization Lab Results - Lab Results Lab Results: 06/17/18 06/17/18 06/17/18 14:36 14:36 14:45 WBC 11.1 H RBC 4.83 Hgb 15.1 Hct 44 MCV 91 MCH 31 MCHC 35 RDW 13 Plt Count 276 MPV 9.2 Neut % (Auto) 74.6 Lymph % (Auto) 18.7 Lamb % (Auto) 6.1 Eos % (Auto) 0.4 Baso % (Auto) 0.2 Absolute Neuts (auto) 8.3 H Absolute Lymphs (auto) 2.1 Absolute Monos (auto) 0.7 Absolute Eos (auto) 0 Absolute Basos (auto) 0 Absolute Nucleated RBC 0 Nucleated RBC % 0 Sodium 140 Potassium 3.6 Chloride 105 Carbon Dioxide 27 Anion Gap 8 BUN 4 L Creatinine 0.81 Est GFR ( Amer) 133.6 Est GFR (Non-Af Amer) 110.4 BUN/Creatinine Ratio 4.9 L Glucose 108 H Hemoglobin A1c Calcium 10.0 Total Bilirubin 0.40 AST 17 ALT 18 Alkaline Phosphatase 55 Total Protein 7.5 Albumin 5.0 Globulin 2.5 Albumin/Globulin Ratio 2.0 Triglycerides Cholesterol LDL Cholesterol HDL Cholesterol TSH 0.93 Urine Color Yellow Urine Appearance Clear Urine pH 6.0 Ur Specific Gonzales 1.006 L Urine Protein Negative Urine Ketones Negative Urine Blood Negative Urine Nitrate Negative Urine Bilirubin Negative Urine Urobilinogen Negative Ur Leukocyte Esterase Negative Urine Glucose Negative Salicylates < 2.50 Urine Opiates Screen Acetaminophen < 15 Ur Barbiturates Screen Ur Phencyclidine Scrn Ur Amphetamines Screen U Benzodiazepines Scrn Urine Cocaine Screen U Cannabinoids Screen Serum Alcohol < 10 06/17/18 06/18/18 06/18/18 14:45 07:02 07:03 WBC RBC Hgb Hct MCV MCH MCHC RDW Plt Count MPV Neut % (Auto) Lymph % (Auto) Lamb % (Auto) Eos % (Auto) Baso % (Auto) Absolute Neuts (auto) Absolute Lymphs (auto) Absolute Monos (auto) Absolute Eos (auto) Absolute Basos (auto) Absolute Nucleated RBC Nucleated RBC % Sodium Potassium Chloride Carbon Dioxide Anion Gap BUN Creatinine Est GFR ( Amer) Est GFR (Non-Af Amer) BUN/Creatinine Ratio Glucose Hemoglobin A1c 4.7 Calcium Total Bilirubin AST ALT Alkaline Phosphatase Total Protein Albumin Globulin Albumin/Globulin Ratio Triglycerides 74 Cholesterol 169 LDL Cholesterol 97 HDL Cholesterol 57.4 TSH Urine Color Urine Appearance Urine pH Ur Specific Gonzales Urine Protein Urine Ketones Urine Blood Urine Nitrate Urine Bilirubin Urine Urobilinogen Ur Leukocyte Esterase Urine Glucose Salicylates Urine Opiates Screen None detected Acetaminophen Ur Barbiturates Screen None detected Ur Phencyclidine Scrn None detected Ur Amphetamines Screen None detected U Benzodiazepines Scrn None detected Urine Cocaine Screen None detected U Cannabinoids Screen None detected Serum Alcohol
[2018-06-19] MEDS: Acetaminophen TAB* 325 MG PO PRN (19:51)
[2018-06-19] MEDS: OLANzapine TAB* 5 MG PO SCH (19:52)
--- NOTE | 2018-06-20 00:55 | EEG ---
ELECTROENCEPHALOGRAPHY: DATE OF STUDY: 06/19/18- ROOM #[id number] DATE OF DICTATION: 06/19/18 ORDERED BY: Dr. Lali Webb. MEDICATIONS: 1. Depakote. 2. Multivitamin. 3. Zyprexa. 4. Tylenol. 5. Maalox. INDICATIONS: Mr. Weiner is a 32-year-old man who was admitted to the Behavior Unit for believing that he is being targeted from space by radiation. This EEG was obtained to evaluate for epileptiform abnormalities. CLINICAL STATE: Awake. REPORT: The waking background showed appropriate organization with clearly defined anterior-posterior voltage and frequency gradients. There was a well defined posterior dominant rhythm of 10 Hz, which was symmetrical and showed normal reactivity. Anteriorly, there was an expected pattern of lower voltage irregular, mixed faster frequencies. Hyperventilation and photic stimulation were not performed. EKG showed a normal sinus rhythm with a rate of 90 beats per minute. Throughout the recording, there were no epileptiform discharges or electrographic seizures. IMPRESSION: This is a normal waking EEG with no evidence of temporal lobe epilepsy or abnormal slowing in the temporal regions. A normal interictal EEG does not exclude or support the diagnosis of epilepsy. Clinical correlation is recommended. [id number]/[facility] #: [id number] JOHAN
[2018-06-20] MEDS: Divalproex DR TAB(*) 250 MG PO SCH ×2 (09:42→20:07)
[2018-06-20] MEDS: Vitamin THERAPEUTIC TAB PO SCH (09:42)
--- NOTE | 2018-06-20 11:36 | PN ---
Subjective - Subjective Date of Service: 06/20/18 Service Type: 60951 Hosp care 15 min low complexity Subjective: WILBERTO continues to have psychotic symptoms of hallucinations and delusions of persecution. He is tolerating his new medications well so far and denies SI or HI. Objective - Appearance Appearance: Obese Dysmorphic Features: No Hygiene: Normal Grooming: Well Kept - Behavior Psychomotor Activities: Normal Exhibits Abnormal Movement: No - Attitude and Relatedness Attitude and Relatedness: Psychotically Related Eye Contact: Fair - Speech Quality: Unpressured Latencies: Normal Quantity: Appropriate - Mood Patient's Decription of Mood: "Okay" - Affect Observed Affect: Fair Affect Consistent with: Euthymia - Thought Process Patient's Thought Process: Circumstantial Thought Content: Yes Paranoid Ideation, No Passive Wish, No Suicidal Planning, No Homicidal Ideation - Sensorium Experiencing Hallucinations: Yes Type of Hallucinations: Visual: No, Auditory: Yes, Command: No - Level of Consciousness Level of Consciousness: Alert Orientation: Yes Intact, Yes Orientated to Time, Yes Orientated to Place, Yes Orientated to Person - Impulse Control Impulse Control: Tenuous - Insight and Judgement Insight and Judgement: Fair - Group Participation Particating in Group Activities: Yes - Medication Management Medication Management Adherence: Yes Assessment - Assessment Merits Inpatient Hospitalization: For Immediate Safety, For Stabilization Inpatient DSM-V Dx: F20.9 Clinical Impression: 32 y.o. single, white male with a history of schizophrenia self-referred to the hospital due to paranoid delusions, AH, VH and command voices telling him to kill himself. MHU: Problem List - Patient Problems (1) Schizophrenia Current Visit: No Status: Acute Priority: High Code(s): F20.9 - SCHIZOPHRENIA, UNSPECIFIED SNOMED Code(s): 76836108 Plan - Plan Treatment Plan: Name: WILBERTO RAMIREZ Birthdate: 1985 [id number] We have discontinued cariprazine in favor of olanzapine 10mg PO qhs and depakote 500mg PO BID. Will titrate these doses. EEG is negative. Continue inpatient care. Continued Medication Management: Different Medication Medications: Current Medications Acetaminophen (Tylenol Tab*) 650 mg PO Q4H PRN PRN Reason: PAIN or TEMP > 101 F Last Admin: 06/19/18 19:51 Dose: 650 mg Al Hydrox/Mg Hydrox/Simethicone (Maalox Plus*) 30 ml PO Q4H PRN PRN Reason: INDIGESTION Divalproex Sodium (Depakote Dr Tab(*)) 500 mg PO BID [facility] Last Admin: 06/20/18 09:42 Dose: 500 mg Multivitamins (Theragran Tab*) 1 tab PO DAILY [facility] Last Admin: 06/20/18 09:42 Dose: 1 tab Olanzapine (Zyprexa Tab*) 10 mg PO BEDTIME [facility] Last Admin: 06/19/18 19:52 Dose: 10 mg - Discharge Plan Discharge Plan: Inpatient Hospitalization Lab Results - Lab Results Lab Results: 06/17/18 06/17/18 06/17/18 14:36 14:36 14:45 WBC 11.1 H RBC 4.83 Hgb 15.1 Hct 44 MCV 91 MCH 31 MCHC 35 RDW 13 Plt Count 276 MPV 9.2 Neut % (Auto) 74.6 Lymph % (Auto) 18.7 [place] % (Auto) 6.1 Eos % (Auto) 0.4 Baso % (Auto) 0.2 Absolute Neuts (auto) 8.3 H Absolute Lymphs (auto) 2.1 Absolute Monos (auto) 0.7 Absolute Eos (auto) 0 Absolute Basos (auto) 0 Absolute Nucleated RBC 0 Nucleated RBC % 0 Sodium 140 Potassium 3.6 Chloride 105 Carbon Dioxide 27 Anion Gap 8 BUN 4 L Creatinine 0.81 Est GFR ( Amer) 133.6 Est GFR (Non-Af Amer) 110.4 BUN/Creatinine Ratio 4.9 L Glucose 108 H Hemoglobin A1c Calcium 10.0 Total Bilirubin 0.40 AST 17 ALT 18 Alkaline Phosphatase 55 Total Protein 7.5 Albumin 5.0 Globulin 2.5 Albumin/Globulin Ratio 2.0 Triglycerides Cholesterol LDL Cholesterol HDL Cholesterol TSH 0.93 Urine Color Yellow Urine Appearance Clear Urine pH 6.0 Ur Specific Cement 1.006 L Urine Protein Negative Urine Ketones Negative Urine Blood Negative Urine Nitrate Negative Urine Bilirubin Negative Urine Urobilinogen Negative Ur Leukocyte Esterase Negative Urine Glucose Negative Salicylates < 2.50 Urine Opiates Screen Acetaminophen < 15 Ur Barbiturates Screen Ur Phencyclidine Scrn Ur Amphetamines Screen U Benzodiazepines Scrn Urine Cocaine Screen U Cannabinoids Screen Serum Alcohol < 10 01/05/19 01/06/19 01/06/19 14:45 07:02 07:03 WBC RBC Hgb Hct MCV MCH MCHC RDW Plt Count MPV Neut % (Auto) Lymph % (Auto) [place] % (Auto) Eos % (Auto) Baso % (Auto) Absolute Neuts (auto) Absolute Lymphs (auto) Absolute Monos (auto) Absolute Eos (auto) Absolute Basos (auto) Absolute Nucleated RBC Nucleated RBC % Sodium Potassium Chloride Carbon Dioxide Anion Gap BUN Creatinine Est GFR ( Amer) Est GFR (Non-Af Amer) BUN/Creatinine Ratio Glucose Hemoglobin A1c 4.7 Calcium Total Bilirubin AST ALT Alkaline Phosphatase Total Protein Albumin Globulin Albumin/Globulin Ratio Triglycerides 74 Cholesterol 169 LDL Cholesterol 97 HDL Cholesterol 57.4 TSH Urine Color Urine Appearance Urine pH Ur Specific Cement Urine Protein Urine Ketones Urine Blood Urine Nitrate Urine Bilirubin Urine Urobilinogen Ur Leukocyte Esterase Urine Glucose Salicylates Urine Opiates Screen None detected Acetaminophen Ur Barbiturates Screen None detected Ur Phencyclidine Scrn None detected Ur Amphetamines Screen None detected U Benzodiazepines Scrn None detected Urine Cocaine Screen None detected U Cannabinoids Screen None detected Serum Alcohol
--- NOTE | 2018-06-20 11:44 | PN ---
MHU: Group Therapy Note - Service Type Service Type: [id number] Group Psychotherapy - Cognitive Behavioral Group Therapy ( CBT):Patient attended CBT programming this morning and presented with flat affect that did not vary with discussion. Although responsive to direct prompts to respond to questions, patient did not engage in spontaneous conversation.
[2018-06-20] MEDS: OLANzapine TAB* 5 MG PO SCH (20:07)
[2018-06-20] MEDS: Acetaminophen TAB* 325 MG PO PRN (20:07)
[2018-06-21] MEDS: Divalproex DR TAB(*) 250 MG PO SCH ×2 (09:08→20:38)
[2018-06-21] MEDS: Vitamin THERAPEUTIC TAB PO SCH (09:08)
--- NOTE | 2018-06-21 11:45 | PN ---
Subjective - Subjective Date of Service: 06/21/18 Service Type: 25179 Hosp care 15 min low complexity Subjective: WILBERTO often appears distressed on the unit. He is complaining of VH of frogs and command AH to kill himself "because I have a Masters degree." On exam he appears anxious and odd stating "I feel better now that I just sat up in this position." He's tolerating his medications well. Objective - Appearance Appearance: Obese Dysmorphic Features: No Hygiene: Normal Grooming: Well Kept - Behavior Psychomotor Activities: Normal Exhibits Abnormal Movement: No - Attitude and Relatedness Attitude and Relatedness: Cooperative Eye Contact: Fair - Speech Quality: Unpressured Latencies: Normal Quantity: Appropriate - Mood Patient's Decription of Mood: "Upset" - Affect Observed Affect: Constricted Affect Consistent with: Dysphoria - Thought Process Patient's Thought Process: Coherent Thought Content: Yes Suicidal Planning, Yes Paranoid Ideation, No Passive Wish, No Homicidal Ideation - Sensorium Experiencing Hallucinations: Yes Type of Hallucinations: Visual: Yes, Auditory: Yes, Command: Yes - Level of Consciousness Level of Consciousness: Alert Orientation: Yes Intact, Yes Orientated to Time, Yes Orientated to Place, Yes Orientated to Person - Impulse Control Impulse Control: Tenuous - Insight and Judgement Insight and Judgement: Fair - Group Participation Particating in Group Activities: Yes - Medication Management Medication Management Adherence: Yes Assessment - Assessment Merits Inpatient Hospitalization: For Immediate Safety, For Stabilization Inpatient DSM-V Dx: F20.9 Clinical Impression: 32 y.o. single, white male with a history of schizophrenia self-referred to the hospital due to paranoid delusions, AH, VH and command voices telling him to kill himself. MHU: Problem List - Patient Problems (1) Schizophrenia Current Visit: No Status: Acute Priority: High Code(s): F20.9 - SCHIZOPHRENIA, UNSPECIFIED SNOMED Code(s): 29115339 Plan - Plan Treatment Plan: Name: WILBERTO RAMIREZ Birthdate: 1985 [id number] We have discontinued cariprazine in favor of olanzapine 10mg PO qhs and depakote 500mg PO BID. Will titrate these doses. EEG is negative. VPA level tomorrow (06/22) morning. Continue inpatient care. Continued Medication Management: Different Medication Medications: Current Medications Acetaminophen (Tylenol Tab*) 650 mg PO Q4H PRN PRN Reason: PAIN or TEMP > 101 F Last Admin: 06/20/18 20:07 Dose: 650 mg Al Hydrox/Mg Hydrox/Simethicone (Maalox Plus*) 30 ml PO Q4H PRN PRN Reason: INDIGESTION Divalproex Sodium (Depakote Dr Tab(*)) 500 mg PO BID [facility] Last Admin: 06/21/18 09:08 Dose: 500 mg Multivitamins (Theragran Tab*) 1 tab PO DAILY [facility] Last Admin: 06/21/18 09:08 Dose: 1 tab Olanzapine (Zyprexa Tab*) 10 mg PO BEDTIME [facility] Last Admin: 06/20/18 20:07 Dose: 10 mg - Discharge Plan Discharge Plan: Inpatient Hospitalization Lab Results - Lab Results Lab Results: 06/18/18 07:02 Hemoglobin A1c 4.7
--- NOTE | 2018-06-21 12:52 | PN ---
MHU: Group Therapy Note - Service Type Service Type: 24692 Group Psychotherapy - Cognitive Behavioral Group Therapy ( CBT):Patient attended CBT programming this morning and presented with flat affect that did not vary with discussion. Although responsive to direct prompts to respond to questions, patient did not engage in spontaneous conversation.
[2018-06-21] MEDS: OLANzapine TAB* 5 MG PO SCH (20:38)
[2018-06-22] MEDS: Vitamin THERAPEUTIC TAB PO SCH (08:51)
[2018-06-22] MEDS: Divalproex DR TAB(*) 250 MG PO SCH ×2 (08:51→20:15)
--- NOTE | 2018-06-22 10:34 | PN ---
Subjective - Subjective Date of Service: 06/22/18 Service Type: [id number] Hosp care 15 min low complexity Subjective: WILBERTO remains tortured by hallucinations and delusions. He is readily observed on the unit interacting with unseen people and claims to see vivid visual hallucinations of various characters such as Pete Wilson and Briana Doe, "which is crazy, because I don't even watch shows like that." He routinely tries to distract himself by reading, watching TV or talking to others. Here on the unit , group and milieu programming is helpful for this purpose. He describes his voices sounding like people saying such things as "You're getting spied on so that means you're gonna get killed." He denies thoughts of harming himself, explaining "I envision my all the time but I'm not suicidal." Objective - Appearance Appearance: Obese Dysmorphic Features: No Hygiene: Normal Grooming: Fairly Well Kept - Behavior Psychomotor Activities: Normal Exhibits Abnormal Movement: No - Attitude and Relatedness Attitude and Relatedness: Cooperative Eye Contact: Fair - Speech Quality: Unpressured Latencies: Normal Quantity: Appropriate - Mood Patient's Decription of Mood: "Anxious" - Affect Observed Affect: Unvariable Affect Consistent with: Dysphoria - Thought Process Patient's Thought Process: Coherent Thought Content: Yes Paranoid Ideation, No Passive Wish, No Suicidal Planning, No Homicidal Ideation - Sensorium Experiencing Hallucinations: Yes Type of Hallucinations: Visual: Yes, Auditory: Yes, Command: Yes - Level of Consciousness Level of Consciousness: Alert Orientation: Yes Intact, Yes Orientated to Time, Yes Orientated to Place, Yes Orientated to Person - Impulse Control Impulse Control: Tenuous - Insight and Judgement Insight and Judgement: Fair - Group Participation Particating in Group Activities: Yes - Medication Management Medication Management Adherence: Yes Assessment - Assessment Merits Inpatient Hospitalization: For Immediate Safety, For Stabilization Inpatient DSM-V Dx: F20.9 Clinical Impression: 32 y.o. single, white male with a history of schizophrenia self-referred to the hospital due to paranoid delusions, AH, VH and command voices telling him to kill himself. MHU: Problem List - Patient Problems (1) Schizophrenia Current Visit: No Status: Acute Priority: High Code(s): F20.9 - SCHIZOPHRENIA, UNSPECIFIED SNOMED Code(s): 71356062 Plan - Plan Treatment Plan: Name: WILBERTO RAMIREZ Birthdate: 1985 [id number] We have discontinued cariprazine in favor of olanzapine 10mg PO qhs and depakote 500mg PO BID. EEG is negative. VPA level this morning was subtherapeutic at 42. Will increase Depakote to 750mg PO BID and increase olanzapine to 15mg nightly. Continue inpatient care. Continued Medication Management: Different Medication Medications: Current Medications Acetaminophen (Tylenol Tab*) 650 mg PO Q4H PRN PRN Reason: PAIN or TEMP > 101 F Last Admin: 06/20/18 20:07 Dose: 650 mg Al Hydrox/Mg Hydrox/Simethicone (Maalox Plus*) 30 ml PO Q4H PRN PRN Reason: INDIGESTION Divalproex Sodium (Depakote Dr Tab(*)) 500 mg PO BID [facility] Last Admin: 06/22/18 08:51 Dose: 500 mg Multivitamins (Theragran Tab*) 1 tab PO DAILY [facility] Last Admin: 06/22/18 08:51 Dose: 1 tab Olanzapine (Zyprexa Tab*) 10 mg PO BEDTIME [facility] Last Admin: 06/21/18 20:38 Dose: 10 mg - Discharge Plan Discharge Plan: Inpatient Hospitalization
--- NOTE | 2018-06-22 12:10 | PN ---
MHU: Group Therapy Note - Service Type Service Type: [id number] Group Psychotherapy - Cognitive Behavioral Group Therapy ( CBT):Patient attended CBT programming this morning and presented with flat affect that did not vary with discussion. Although responsive to direct prompts to respond to questions, patient did not engage in spontaneous conversation.
[2018-06-22] MEDS: OLANzapine TAB* 5 MG PO SCH (20:16)
[2018-06-23] MEDS: Vitamin THERAPEUTIC TAB PO SCH (09:25)
[2018-06-23] MEDS: Divalproex DR TAB(*) 250 MG PO SCH ×2 (09:25→21:29)
--- NOTE | 2018-06-23 11:24 | PN ---
MHU: Group Therapy Note - Service Type Service Type: 66391 Group Psychotherapy - Cognitive Behavioral Group Therapy ( CBT):Patient attended CBT programming this morning and presented with flat affect that did not vary with discussion. Although responsive to direct prompts to respond to questions, patient did not engage in spontaneous conversation.
--- NOTE | 2018-06-23 12:39 | PN ---
Subjective - Subjective Date of Service: 06/23/18 Service Type: 46196 Hosp care 15 min low complexity Subjective: WILBERTO is not doing well. As I approach in the hallway he is clearly responding to internal stimuli, appearing anxious and distressed. "There's radiation all over me. It's coming from my thyroid. None of this started until that time in [place] when someone at [facility] said 'I'm going to put radiation on you.' I can feel it in my chest and all over." He is offered lorazepam, but declines, saying "That only helps for a few minutes." He denies SI. Objective - Appearance Appearance: Obese Dysmorphic Features: No Hygiene: Normal Grooming: Fairly Well Kept - Behavior Psychomotor Activities: Normal Exhibits Abnormal Movement: No - Attitude and Relatedness Attitude and Relatedness: Psychotically Related Eye Contact: Fair - Speech Quality: Unpressured Latencies: Normal Quantity: Appropriate - Mood Patient's Decription of Mood: "Anxious" - Affect Observed Affect: Tense Affect Consistent with: Dysphoria - Thought Process Patient's Thought Process: Coherent Thought Content: Yes Paranoid Ideation, No Passive Wish, No Suicidal Planning, No Homicidal Ideation - Sensorium Experiencing Hallucinations: Yes Type of Hallucinations: Visual: Yes, Auditory: Yes, Command: Yes - Level of Consciousness Level of Consciousness: Alert Orientation: Yes Intact, Yes Orientated to Time, Yes Orientated to Place, Yes Orientated to Person - Impulse Control Impulse Control: Tenuous - Insight and Judgement Insight and Judgement: Fair - Group Participation Particating in Group Activities: Yes - Medication Management Medication Management Adherence: Yes Assessment - Assessment Merits Inpatient Hospitalization: For Immediate Safety, For Stabilization Inpatient DSM-V Dx: F20.9 Clinical Impression: 32 y.o. single, white male with a history of schizophrenia self-referred to the hospital due to paranoid delusions, AH, VH and command voices telling him to kill himself. MHU: Problem List - Patient Problems (1) Schizophrenia Current Visit: No Status: Acute Priority: High Code(s): F20.9 - SCHIZOPHRENIA, UNSPECIFIED SNOMED Code(s): 58956784 Plan - Plan Treatment Plan: Name: WILBERTO RAMIREZ Birthdate: 1985 [id number] We have discontinued cariprazine in favor of olanzapine 15mg PO qhs and depakote 750mg PO BID. EEG is negative. Will add clonazepam 1mg PO BID. Continue inpatient care. Continued Medication Management: Different Medication Medications: Current Medications Acetaminophen (Tylenol Tab*) 650 mg PO Q4H PRN PRN Reason: PAIN or TEMP > 101 F Last Admin: 06/20/18 20:07 Dose: 650 mg Al Hydrox/Mg Hydrox/Simethicone (Maalox Plus*) 30 ml PO Q4H PRN PRN Reason: INDIGESTION Clonazepam (Klonopin Tab(*)) 1 mg PO BID [facility] Divalproex Sodium (Depakote Dr Tab(*)) 750 mg PO BID [facility] Last Admin: 06/23/18 09:25 Dose: 750 mg Multivitamins (Theragran Tab*) 1 tab PO DAILY [facility] Last Admin: 06/23/18 09:25 Dose: 1 tab Olanzapine (Zyprexa Tab*) 15 mg PO BEDTIME [facility] Last Admin: 06/22/18 20:16 Dose: 15 mg - Discharge Plan Discharge Plan: Inpatient Hospitalization
[2018-06-23] MEDS: clonazePAM TAB(*) 1 MG PO SCH ×2 (13:05→21:29)
[2018-06-23] MEDS: OLANzapine TAB* 5 MG PO SCH (21:30)
[2018-06-24] MEDS: clonazePAM TAB(*) 1 MG PO SCH ×2 (10:56→20:41)
[2018-06-24] MEDS: Vitamin THERAPEUTIC TAB PO SCH (10:57)
[2018-06-24] MEDS: Divalproex DR TAB(*) 250 MG PO SCH ×2 (10:57→20:41)
[2018-06-24] MEDS: OLANzapine TAB* 5 MG PO SCH (20:40)
[2018-06-25] MEDS: clonazePAM TAB(*) 1 MG PO SCH ×2 (08:21→20:23)
[2018-06-25] MEDS: Vitamin THERAPEUTIC TAB PO SCH (08:22)
[2018-06-25] MEDS: Divalproex DR TAB(*) 250 MG PO SCH ×2 (08:22→20:24)
[2018-06-25] MEDS: OLANzapine TAB* 5 MG PO SCH (20:23)
[2018-06-26] MEDS: clonazePAM TAB(*) 1 MG PO SCH ×2 (09:47→21:20)
[2018-06-26] MEDS: Vitamin THERAPEUTIC TAB PO SCH (09:47)
[2018-06-26] MEDS: Divalproex DR TAB(*) 250 MG PO SCH ×2 (09:48→21:20)
--- NOTE | 2018-06-26 12:26 | PN ---
Subjective - Subjective Date of Service: 06/26/18 Service Type: 31374 Hosp care 15 min low complexity Subjective: WILBERTO is alone in his room. He does not appear to be responding to internal stimuli this morning. He continues to have delusional beliefs about being targeted by employees of [employer] in [place], but he seems less absorbed with them at this time. He denies SI or HI. He continues to have AH and VH. Objective - Appearance Appearance: Obese Dysmorphic Features: No Hygiene: Normal Grooming: Fairly Well Kept - Behavior Psychomotor Activities: Normal Exhibits Abnormal Movement: No - Attitude and Relatedness Attitude and Relatedness: Cooperative Eye Contact: Fair - Speech Quality: Unpressured Latencies: Normal Quantity: Appropriate - Mood Patient's Decription of Mood: "Okay" - Affect Observed Affect: Fair Affect Consistent with: Euthymia - Thought Process Patient's Thought Process: Coherent Thought Content: Yes Paranoid Ideation, No Passive Wish, No Suicidal Planning, No Homicidal Ideation - Sensorium Experiencing Hallucinations: Yes Type of Hallucinations: Visual: Yes, Auditory: Yes, Command: No - Level of Consciousness Level of Consciousness: Alert Orientation: Yes Intact, Yes Orientated to Time, Yes Orientated to Place, Yes Orientated to Person - Impulse Control Impulse Control: Tenuous - Insight and Judgement Insight and Judgement: Fair - Group Participation Particating in Group Activities: Yes - Medication Management Medication Management Adherence: Yes Assessment - Assessment Merits Inpatient Hospitalization: For Immediate Safety, For Stabilization Inpatient DSM-V Dx: F20.9 Clinical Impression: 32 y.o. single, white male with a history of schizophrenia self-referred to the hospital due to paranoid delusions, AH, VH and command voices telling him to kill himself. MHU: Problem List - Patient Problems (1) Schizophrenia Current Visit: No Status: Acute Priority: High Code(s): F20.9 - SCHIZOPHRENIA, UNSPECIFIED SNOMED Code(s): 55686518 Plan - Plan Treatment Plan: Name: WILBERTO RAMIREZ Birthdate: 1985 [id number] We have discontinued cariprazine in favor of olanzapine 15mg PO qhs, Depakote 750mg PO BID and clonazepam 1mg PO BID. Will increase olanzapine to 10mg PO BID. New Depakote level in the AM. Continue inpatient care. Continued Medication Management: Different Medication Medications: Current Medications Acetaminophen (Tylenol Tab*) 650 mg PO Q4H PRN PRN Reason: PAIN or TEMP > 101 F Last Admin: 06/20/18 20:07 Dose: 650 mg Al Hydrox/Mg Hydrox/Simethicone (Maalox Plus*) 30 ml PO Q4H PRN PRN Reason: INDIGESTION Clonazepam (Klonopin Tab(*)) 1 mg PO BID [facility] Last Admin: 06/26/18 09:47 Dose: 1 mg Divalproex Sodium (Depakote Dr Tab(*)) 750 mg PO BID [facility] Last Admin: 06/26/18 09:48 Dose: 750 mg Multivitamins (Theragran Tab*) 1 tab PO DAILY [facility] Last Admin: 06/26/18 09:47 Dose: 1 tab - Discharge Plan Discharge Plan: Inpatient Hospitalization
[2018-06-26] MEDS: OLANzapine TAB* 10 MG PO SCH ×2 (14:04→21:21)
[2018-06-27] MEDS: Divalproex DR TAB(*) 250 MG PO SCH ×2 (10:01→20:34)
[2018-06-27] MEDS: clonazePAM TAB(*) 1 MG PO SCH ×2 (10:02→20:34)
[2018-06-27] MEDS: Vitamin THERAPEUTIC TAB PO SCH (10:02)
[2018-06-27] MEDS: OLANzapine TAB* 10 MG PO SCH ×2 (10:02→20:35)
[2018-06-28] MEDS: Divalproex DR TAB(*) 250 MG PO SCH ×2 (09:03→21:06)
[2018-06-28] MEDS: OLANzapine TAB* 10 MG PO SCH ×2 (09:03→21:06)
[2018-06-28] MEDS: Vitamin THERAPEUTIC TAB PO SCH (09:03)
[2018-06-28] MEDS: clonazePAM TAB(*) 1 MG PO SCH (09:03)
--- NOTE | 2018-06-28 11:00 | PN ---
MHU: Group Therapy Note - Service Type Service Type: 83207 Group Psychotherapy - Cognitive Behavioral Group Therapy ( CBT):Patient attended CBT programming this morning and presented with flat affect that did not vary with discussion. Although responsive to direct prompts to respond to questions, patient did not engage in spontaneous conversation.
--- NOTE | 2018-06-28 15:34 | PN ---
Subjective - Subjective Date of Service: 06/28/18 Service Type: 21078 Hosp care 15 min low complexity Subjective: WILBERTO seems symptomatically better, although he is somewhat sedated and was noted to be falling asleep in group. Patient makes no spontaneous claims of persecutory victimization or AH/VH. He denies SI. Objective - Appearance Appearance: Obese Dysmorphic Features: No Hygiene: Normal Grooming: Fairly Well Kept - Behavior Psychomotor Activities: Normal Exhibits Abnormal Movement: No - Attitude and Relatedness Attitude and Relatedness: Cooperative Eye Contact: Fair - Speech Quality: Unpressured Latencies: Normal Quantity: Terse - Mood Patient's Decription of Mood: "Okay" - Affect Observed Affect: Unvariable Affect Consistent with: Euthymia - Thought Process Patient's Thought Process: Impoverished Thought Content: Yes Paranoid Ideation, No Passive Wish, No Suicidal Planning, No Homicidal Ideation - Sensorium Experiencing Hallucinations: No, Sensorium is Clear Type of Hallucinations: Visual: No, Auditory: No, Command: No - Level of Consciousness Level of Consciousness: Lethargic Orientation: Yes Intact, Yes Orientated to Time, Yes Orientated to Place, Yes Orientated to Person - Impulse Control Impulse Control: Tenuous - Insight and Judgement Insight and Judgement: Fair - Group Participation Particating in Group Activities: Yes - Medication Management Medication Management Adherence: Yes Assessment - Assessment Merits Inpatient Hospitalization: For Immediate Safety, For Stabilization Inpatient DSM-V Dx: F20.9 Clinical Impression: 32 y.o. single, white male with a history of schizophrenia self-referred to the hospital due to paranoid delusions, AH, VH and command voices telling him to kill himself. MHU: Problem List - Patient Problems (1) Schizophrenia Current Visit: No Status: Acute Priority: High Code(s): F20.9 - SCHIZOPHRENIA, UNSPECIFIED SNOMED Code(s): 61996806 Plan - Plan Treatment Plan: Name: WILBERTO RAMIREZ Birthdate: 1985 [id number] We have discontinued cariprazine in favor of olanzapine 10mg PO BID, Depakote 750mg PO BID and clonazepam 1mg PO BID. Depakote level is therapeutic at 75. Will discontinue clonazepam. Continue inpatient care. Continued Medication Management: Different Medication Medications: Current Medications Acetaminophen (Tylenol Tab*) 650 mg PO Q4H PRN PRN Reason: PAIN or TEMP > 101 F Last Admin: 06/20/18 20:07 Dose: 650 mg Al Hydrox/Mg Hydrox/Simethicone (Maalox Plus*) 30 ml PO Q4H PRN PRN Reason: INDIGESTION Divalproex Sodium (Depakote Dr Tab(*)) 750 mg PO BID [facility] Last Admin: 06/28/18 09:03 Dose: 750 mg Multivitamins (Theragran Tab*) 1 tab PO DAILY [facility] Last Admin: 06/28/18 09:03 Dose: 1 tab Olanzapine (Zyprexa Tab*) 10 mg PO BID [facility] Last Admin: 06/28/18 09:03 Dose: 10 mg - Discharge Plan Discharge Plan: Inpatient Hospitalization
[2018-06-29] MEDS: Vitamin THERAPEUTIC TAB PO SCH (09:19)
[2018-06-29] MEDS: Divalproex DR TAB(*) 250 MG PO SCH ×2 (09:19→20:13)
[2018-06-29] MEDS: OLANzapine TAB* 10 MG PO SCH ×2 (09:19→20:14)
[2018-06-30] MEDS: Vitamin THERAPEUTIC TAB PO SCH (09:54)
[2018-06-30] MEDS: OLANzapine TAB* 10 MG PO SCH ×2 (09:54→20:08)
[2018-06-30] MEDS: Divalproex DR TAB(*) 250 MG PO SCH ×2 (09:54→20:08)
--- NOTE | 2018-06-30 12:15 | PN ---
Subjective - Subjective Date of Service: 06/30/18 Service Type: [id number] Hosp care 15 min low complexity Subjective: WILBERTO continues to be tachycardic with socially isolative behavior on the unit and complaints of AH, although they are less intrusive than prior to admission. He denies SI or HI. Objective - Appearance Appearance: Obese Dysmorphic Features: Yes Hygiene: Normal Grooming: Fairly Well Kept - Behavior Psychomotor Activities: Normal Exhibits Abnormal Movement: No - Attitude and Relatedness Attitude and Relatedness: Cooperative Eye Contact: Fair - Speech Quality: Unpressured Latencies: Normal Quantity: Terse - Mood Patient's Decription of Mood: "Okay" - Affect Observed Affect: Fair Affect Consistent with: Euthymia - Thought Process Patient's Thought Process: Circumstantial Thought Content: Yes Paranoid Ideation, No Passive Wish, No Suicidal Planning, No Homicidal Ideation - Sensorium Experiencing Hallucinations: Yes Type of Hallucinations: Visual: No, Auditory: Yes, Command: No - Level of Consciousness Level of Consciousness: Alert Orientation: Yes Intact, Yes Orientated to Time, Yes Orientated to Place, Yes Orientated to Person - Impulse Control Impulse Control: Tenuous - Insight and Judgement Insight and Judgement: Fair - Group Participation Particating in Group Activities: No - Medication Management Medication Management Adherence: Yes Assessment - Assessment Merits Inpatient Hospitalization: For Immediate Safety, For Stabilization Inpatient DSM-V Dx: F20.9 Clinical Impression: 32 y.o. single, white male with a history of schizophrenia self-referred to the hospital due to paranoid delusions, AH, VH and command voices telling him to kill himself. MHU: Problem List - Patient Problems (1) Schizophrenia Current Visit: No Status: Acute Priority: High Code(s): F20.9 - SCHIZOPHRENIA, UNSPECIFIED SNOMED Code(s): 92790941 Plan - Plan Treatment Plan: Name: WILBERTO RAMIREZ Birthdate: 1985 [id number] We have discontinued cariprazine in favor of olanzapine 10mg PO BID and Depakote 750mg PO BID. Will start propranolol 20mg PO BID for tachycardia and anxiety. Depakote level is therapeutic at 75. Continue inpatient care. Continued Medication Management: Different Medication Medications: Current Medications Acetaminophen (Tylenol Tab*) 650 mg PO Q4H PRN PRN Reason: PAIN or TEMP > 101 F Last Admin: 06/20/18 20:07 Dose: 650 mg Al Hydrox/Mg Hydrox/Simethicone (Maalox Plus*) 30 ml PO Q4H PRN PRN Reason: INDIGESTION Divalproex Sodium (Depakote Dr Tab(*)) 750 mg PO BID [facility] Last Admin: 06/30/18 09:54 Dose: 750 mg Multivitamins (Theragran Tab*) 1 tab PO DAILY [facility] Last Admin: 06/30/18 09:54 Dose: 1 tab Olanzapine (Zyprexa Tab*) 10 mg PO BID [facility] Last Admin: 06/30/18 09:54 Dose: 10 mg - Discharge Plan Discharge Plan: Inpatient Hospitalization
[2018-06-30] MEDS: Propranolol TAB* 20 MG PO SCH ×2 (13:38→20:08)
[2018-06-30] MEDS: guaiFENesin ER TAB 600 MG PO PRN (21:35)
[2018-07-01] MEDS: guaiFENesin ER TAB 600 MG PO PRN (10:30)
[2018-07-01] MEDS: Divalproex DR TAB(*) 250 MG PO SCH ×2 (10:30→20:23)
[2018-07-01] MEDS: Vitamin THERAPEUTIC TAB PO SCH (10:30)
[2018-07-01] MEDS: Propranolol TAB* 20 MG PO SCH ×2 (10:30→16:24)
[2018-07-01] MEDS: OLANzapine TAB* 10 MG PO SCH ×2 (10:30→20:23)
[2018-07-01] MEDS: Acetaminophen TAB* 325 MG PO PRN (21:53)
[2018-07-02] MEDS: OLANzapine TAB* 10 MG PO SCH ×2 (09:28→19:11)
[2018-07-02] MEDS: Divalproex DR TAB(*) 250 MG PO SCH ×2 (09:28→19:11)
[2018-07-02] MEDS: Propranolol TAB* 20 MG PO SCH ×2 (09:29→19:11)
[2018-07-02] MEDS: Vitamin THERAPEUTIC TAB PO SCH (09:29)
[2018-07-02] MEDS: guaiFENesin ER TAB 600 MG PO PRN (09:29)
[2018-07-03] MEDS: guaiFENesin ER TAB 600 MG PO PRN ×2 (04:10→21:04)
[2018-07-03] MEDS: Propranolol TAB* 20 MG PO SCH ×2 (09:24→21:04)
[2018-07-03] MEDS: Divalproex DR TAB(*) 250 MG PO SCH ×2 (09:24→21:04)
[2018-07-03] MEDS: Vitamin THERAPEUTIC TAB PO SCH (09:24)
[2018-07-03] MEDS: OLANzapine TAB* 10 MG PO SCH (09:24)
--- NOTE | 2018-07-03 12:35 | PN ---
Subjective - Subjective Date of Service: 07/03/18 Service Type: [id number] Hosp care 15 min low complexity Subjective: WILBERTO remains anxious and paranoid...believes his body is being used as "an antenna for radio signals." Patient hearing voices saying "You're being spied on" and "You're going to be killed." Appears uncomfortable and restless, unable to stay in groups for too long. HR and BP are elevated. Denies SI or HI. Objective - Appearance Appearance: Obese Dysmorphic Features: No Hygiene: Normal Grooming: Fairly Well Kept - Behavior Psychomotor Activities: Abnormal-Increased Exhibits Abnormal Movement: No - Attitude and Relatedness Attitude and Relatedness: Cooperative Eye Contact: Fair - Speech Quality: Unpressured Latencies: Normal Quantity: Appropriate - Mood Patient's Decription of Mood: "Anxious" - Affect Observed Affect: Tense Affect Consistent with: Dysphoria - Thought Process Patient's Thought Process: Coherent Thought Content: Yes Paranoid Ideation, No Passive Wish, No Suicidal Planning, No Homicidal Ideation - Sensorium Experiencing Hallucinations: Yes Type of Hallucinations: Visual: No, Auditory: Yes, Command: Yes - Level of Consciousness Level of Consciousness: Alert Orientation: Yes Intact, Yes Orientated to Time, Yes Orientated to Place, Yes Orientated to Person - Impulse Control Impulse Control: Tenuous - Insight and Judgement Insight and Judgement: Fair - Group Participation Particating in Group Activities: No - Medication Management Medication Management Adherence: Yes Assessment - Assessment Merits Inpatient Hospitalization: For Immediate Safety, For Stabilization Inpatient DSM-V Dx: F20.9 Clinical Impression: 32 y.o. single, white male with a history of schizophrenia self-referred to the hospital due to paranoid delusions, AH, VH and command voices telling him to kill himself. MHU: Problem List - Patient Problems (1) Schizophrenia Current Visit: No Status: Acute Priority: High Code(s): F20.9 - SCHIZOPHRENIA, UNSPECIFIED SNOMED Code(s): 93588178 Plan - Plan Treatment Plan: Name: WILBERTO RAMIREZ Birthdate: 1985 [id number] We have discontinued cariprazine in favor of olanzapine 10mg PO BID, propranolol 20mg PO BID and Depakote 750mg PO BID. Will increase propranolol to 40mg PO BID for tachycardia and anxiety. Will increase olanzapine to 15mg PO BID for psychosis. Depakote level is therapeutic at 75. Continue inpatient care. Continued Medication Management: Different Medication Medications: Current Medications Acetaminophen (Tylenol Tab*) 650 mg PO Q4H PRN PRN Reason: PAIN or TEMP > 101 F Last Admin: 07/01/18 21:53 Dose: 650 mg Al Hydrox/Mg Hydrox/Simethicone (Maalox Plus*) 30 ml PO Q4H PRN PRN Reason: INDIGESTION Divalproex Sodium (Depakote Dr Tab(*)) 750 mg PO BID [facility] Last Admin: 07/03/18 09:24 Dose: 750 mg Guaifenesin (Mucinex*) 600 mg PO Q12H PRN PRN Reason: CONGESTION Last Admin: 07/03/18 04:10 Dose: 600 mg Multivitamins (Theragran Tab*) 1 tab PO DAILY [facility] Last Admin: 07/03/18 09:24 Dose: 1 tab Olanzapine (Zyprexa Tab*) 15 mg PO BID [facility] Propranolol HCl (Inderal Tab*) 40 mg PO BID [facility] - Discharge Plan Discharge Plan: Inpatient Hospitalization
[2018-07-03] MEDS: OLANzapine TAB* 5 MG PO SCH (21:05)
[2018-07-04] MEDS: guaiFENesin ER TAB 600 MG PO PRN ×2 (08:23→21:36)
[2018-07-04] MEDS: OLANzapine TAB* 5 MG PO SCH ×2 (08:23→21:34)
[2018-07-04] MEDS: Vitamin THERAPEUTIC TAB PO SCH (08:23)
[2018-07-04] MEDS: Divalproex DR TAB(*) 250 MG PO SCH ×2 (08:23→21:33)
[2018-07-04] MEDS: Propranolol TAB* 20 MG PO SCH ×2 (08:24→21:34)
[2018-07-05] MEDS: Propranolol TAB* 20 MG PO SCH ×2 (09:04→21:07)
[2018-07-05] MEDS: Divalproex DR TAB(*) 250 MG PO SCH ×2 (09:05→21:06)
[2018-07-05] MEDS: Vitamin THERAPEUTIC TAB PO SCH (09:05)
[2018-07-05] MEDS: OLANzapine TAB* 5 MG PO SCH ×2 (09:05→21:06)
[2018-07-05] MEDS: guaiFENesin ER TAB 600 MG PO PRN (09:07)
--- NOTE | 2018-07-05 13:19 | PN ---
Subjective - Subjective Date of Service: 07/05/18 Service Type: [id number] Hosp care 15 min low complexity Subjective: WILBERTO continues to not do well, despite large doses of olanzapine and Depakote, augmented with propranolol. He is not tolerating group settings well, becoming easily overstimulated and having to leave. He is requesting that the lights remain on in his room at night so that he can better distinguish reality from hallucinations and he is often observed responding to internal stimuli in the hallways. He does seem to be pacing less since the titration of propranolol. He denies SI or HI. Objective - Appearance Appearance: Obese Dysmorphic Features: No Hygiene: Normal Grooming: Fairly Well Kept - Behavior Psychomotor Activities: Abnormal-Decreased Exhibits Abnormal Movement: No - Attitude and Relatedness Attitude and Relatedness: Psychotically Related Eye Contact: Fair - Speech Quality: Unpressured Latencies: Long Quantity: Terse - Mood Patient's Decription of Mood: "Anxious" - Affect Observed Affect: Tense Affect Consistent with: Dysphoria - Thought Process Patient's Thought Process: Coherent Thought Content: Yes Paranoid Ideation, No Passive Wish, No Suicidal Planning, No Homicidal Ideation - Sensorium Experiencing Hallucinations: Yes Type of Hallucinations: Visual: Yes, Auditory: Yes, Command: No - Level of Consciousness Level of Consciousness: Alert Orientation: Yes Intact, Yes Orientated to Time, Yes Orientated to Place, Yes Orientated to Person - Impulse Control Impulse Control: Tenuous - Insight and Judgement Insight and Judgement: Fair - Group Participation Particating in Group Activities: No - Medication Management Medication Management Adherence: Yes Assessment - Assessment Merits Inpatient Hospitalization: For Immediate Safety, For Stabilization Inpatient DSM-V Dx: F20.9 Clinical Impression: 32 y.o. single, white male with a history of schizophrenia self-referred to the hospital due to paranoid delusions, AH, VH and command voices telling him to kill himself. MHU: Problem List - Patient Problems (1) Schizophrenia Current Visit: No Status: Acute Priority: High Code(s): F20.9 - SCHIZOPHRENIA, UNSPECIFIED SNOMED Code(s): 26969785 Plan - Plan Treatment Plan: Name: WILBERTO RAMIREZ Birthdate: 1985 [id number] We have discontinued cariprazine in favor of olanzapine 15mg PO BID, propranolol 40mg PO BID and Depakote 750mg PO BID. Depakote level is therapeutic at 75. Continue inpatient care. Continued Medication Management: Different Medication Medications: Current Medications Acetaminophen (Tylenol Tab*) 650 mg PO Q4H PRN PRN Reason: PAIN or TEMP > 101 F Last Admin: 07/01/18 21:53 Dose: 650 mg Al Hydrox/Mg Hydrox/Simethicone (Maalox Plus*) 30 ml PO Q4H PRN PRN Reason: INDIGESTION Divalproex Sodium (Depakote Dr Tab(*)) 750 mg PO BID [facility] Last Admin: 07/05/18 09:05 Dose: 750 mg Guaifenesin (Mucinex*) 600 mg PO Q12H PRN PRN Reason: CONGESTION Last Admin: 07/05/18 09:07 Dose: 600 mg Multivitamins (Theragran Tab*) 1 tab PO DAILY [facility] Last Admin: 07/05/18 09:05 Dose: 1 tab Olanzapine (Zyprexa Tab*) 15 mg PO BID [facility] Last Admin: 07/05/18 09:05 Dose: 15 mg Propranolol HCl (Inderal Tab*) 40 mg PO BID [facility] Last Admin: 07/05/18 09:04 Dose: 40 mg - Discharge Plan Discharge Plan: Inpatient Hospitalization
[2018-07-06 08:00] LABS: ABS Basophils 0 10^3/ul (0-0.2); ABS Eosinophils 0.2 10^3/ul (0-0.6); ABS Lymphocytes 2.9 10^3/ul (1.0-4.8); ABS Monocytes 0.6 10^3/ul (0-0.8); ABS Neutrophils 5.5 10^3/ul (1.5-7.7); ABS Nucleated RBC 0 10^3/ul; Eosinophil % 1.7 %; Hematocrit 44 % (42-52); Hemoglobin 14.7 g/dl (14.0-18.0); Lymphocyte % 31.8 %; Mean Corpuscular HGB Conc 33 g/dl (31-36); Mean Corpuscular Hemoglobin 31 pg (27-31); Mean Corpuscular Volume 91 fL (80-94); Mean Platelet Volume 8.7 fL (7.4-10.4); Nucleated Red Blood Cells % 0; Platelet Count 280 10^3/ul (150-450); Red Blood Count 4.84 10^6/ul (4.00-5.40); Red Cell Distribution Width 13 % (10.5-15); White Blood Count 9.1 10^3/ul (3.5-10.8)
[2018-07-06 08:38] LABS: Albumin/Globulin Ratio 1.3 (1-3); BUN/Creatinine Ratio 21.1 (8-20); Calcium 9.8 mg/dL (8.6-10.3); EGFR African American 155.6 (>60); EGFR Non-African American 128.6 (>60); Potassium 4.1 mmol/L (3.5-5.0); Total Bilirubin 0.3 mg/dL (0.2-1.0)
[2018-07-06] MEDS: Propranolol TAB* 20 MG PO SCH ×2 (08:59→20:58)
[2018-07-06] MEDS: OLANzapine TAB* 5 MG PO SCH ×2 (08:59→20:58)
[2018-07-06] MEDS: guaiFENesin ER TAB 600 MG PO PRN ×2 (08:59→20:57)
[2018-07-06] MEDS: Divalproex DR TAB(*) 250 MG PO SCH ×2 (08:59→20:58)
[2018-07-06] MEDS: Vitamin THERAPEUTIC TAB PO SCH (08:59)
--- NOTE | 2018-07-06 11:29 | PN ---
MHU: Group Therapy Note - Service Type Service Type: [id number] Group Psychotherapy - Cognitive Behavioral Group Therapy ( CBT):Patient attended CBT programming this morning and presented with flat affect that did not vary with discussion. Although responsive to direct prompts to respond to questions, patient did not engage in spontaneous conversation.
[2018-07-07] MEDS: Vitamin THERAPEUTIC TAB PO SCH (09:53)
[2018-07-07] MEDS: Divalproex DR TAB(*) 250 MG PO SCH ×2 (09:53→21:03)
[2018-07-07] MEDS: Propranolol TAB* 20 MG PO SCH ×2 (09:54→21:03)
[2018-07-07] MEDS: OLANzapine TAB* 5 MG PO SCH ×2 (09:54→21:04)
[2018-07-07] MEDS: guaiFENesin ER TAB 600 MG PO PRN ×2 (09:54→21:03)
--- NOTE | 2018-07-07 12:02 | PN ---
Subjective - Subjective Date of Service: 07/07/18 Service Type: 16273 Hosp care 15 min low complexity Subjective: Patient insists that he's doing better but is still odd interpersonally. He is observed making odd hand motions and talking to himself. His BP values remain somewhat elevated. He denies AH or SI. Objective - Appearance Appearance: Obese Dysmorphic Features: No Hygiene: Normal Grooming: Fairly Well Kept - Behavior Psychomotor Activities: Normal Exhibits Abnormal Movement: No - Attitude and Relatedness Attitude and Relatedness: Cooperative Eye Contact: Fair - Speech Quality: Unpressured Latencies: Normal Quantity: Terse - Mood Patient's Decription of Mood: "Okay" - Affect Observed Affect: Unvariable Affect Consistent with: Euthymia - Thought Process Patient's Thought Process: Coherent Thought Content: Yes Paranoid Ideation, No Passive Wish, No Suicidal Planning, No Homicidal Ideation - Sensorium Experiencing Hallucinations: Yes Type of Hallucinations: Visual: Yes, Auditory: Yes, Command: No - Level of Consciousness Level of Consciousness: Alert Orientation: Yes Intact, Yes Orientated to Time, Yes Orientated to Place, Yes Orientated to Person - Impulse Control Impulse Control: Tenuous - Insight and Judgement Insight and Judgement: Fair - Group Participation Particating in Group Activities: Yes - Medication Management Medication Management Adherence: Yes Assessment - Assessment Merits Inpatient Hospitalization: For Immediate Safety, For Stabilization Inpatient DSM-V Dx: F20.9 Clinical Impression: 32 y.o. single, white male with a history of schizophrenia self-referred to the hospital due to paranoid delusions, AH, VH and command voices telling him to kill himself. BSU: Problem List - Patient Problems (1) Schizophrenia Current Visit: No Status: Acute Priority: High Code(s): F20.9 - SCHIZOPHRENIA, UNSPECIFIED SNOMED Code(s): 81239992 Plan - Plan Treatment Plan: Name: WILBERTO RAMIREZ Birthdate: 1985 [id number] We have discontinued cariprazine in favor of olanzapine 15mg PO BID, propranolol 40mg PO BID and Depakote 750mg PO BID. Depakote level is therapeutic at 75. We will increase propranolol from 40 to 60mg PO BID for akathisia, anxiety and hypertension. Continue inpatient care. Continued Medication Management: Start Medication Medications: Current Medications Acetaminophen (Tylenol Tab*) 650 mg PO Q4H PRN PRN Reason: PAIN or TEMP > 101 F Last Admin: 07/01/18 21:53 Dose: 650 mg Al Hydrox/Mg Hydrox/Simethicone (Maalox Plus*) 30 ml PO Q4H PRN PRN Reason: INDIGESTION Divalproex Sodium (Depakote Dr Tab(*)) 750 mg PO BID [facility] Last Admin: 07/07/18 09:53 Dose: 750 mg Guaifenesin (Mucinex*) 600 mg PO Q12H PRN PRN Reason: CONGESTION Last Admin: 07/07/18 09:54 Dose: 600 mg Multivitamins (Theragran Tab*) 1 tab PO DAILY [facility] Last Admin: 07/07/18 09:53 Dose: 1 tab Olanzapine (Zyprexa Tab*) 15 mg PO BID [facility] Last Admin: 07/07/18 09:54 Dose: 15 mg Propranolol HCl (Inderal Tab*) 60 mg PO BID [facility] - Discharge Plan Discharge Plan: Inpatient Hospitalization
[2018-07-08] MEDS: OLANzapine TAB* 5 MG PO SCH ×2 (09:12→21:19)
[2018-07-08] MEDS: Vitamin THERAPEUTIC TAB PO SCH (09:12)
[2018-07-08] MEDS: Propranolol TAB* 20 MG PO SCH ×2 (09:12→21:20)
[2018-07-08] MEDS: guaiFENesin ER TAB 600 MG PO PRN ×2 (09:13→21:37)
[2018-07-08] MEDS: Divalproex DR TAB(*) 250 MG PO SCH ×2 (09:13→21:19)
[2018-07-08] MEDS: Acetaminophen TAB* 325 MG PO PRN (11:28)
[2018-07-09] MEDS: Acetaminophen TAB* 325 MG PO PRN ×2 (08:50→20:58)
[2018-07-09] MEDS: Divalproex DR TAB(*) 250 MG PO SCH ×2 (08:51→21:00)
[2018-07-09] MEDS: Propranolol TAB* 20 MG PO SCH ×2 (08:51→20:59)
[2018-07-09] MEDS: guaiFENesin ER TAB 600 MG PO PRN ×2 (08:51→21:03)
[2018-07-09] MEDS: OLANzapine TAB* 5 MG PO SCH ×2 (08:51→20:59)
[2018-07-09] MEDS: Vitamin THERAPEUTIC TAB PO SCH (08:52)
[2018-07-10 09:48] VITALS: BP 128/75
[2018-07-10] MEDS: Acetaminophen TAB* 325 MG PO PRN (09:51)
[2018-07-10] MEDS: Divalproex DR TAB(*) 250 MG PO SCH (09:52)
[2018-07-10] MEDS: Vitamin THERAPEUTIC TAB PO SCH (09:52)
[2018-07-10] MEDS: OLANzapine TAB* 5 MG PO SCH (09:53)
[2018-07-10] MEDS: Propranolol TAB* 20 MG PO SCH (09:54)
--- NOTE | 2018-07-10 14:16 | DS ---
DISCHARGE SUMMARY: DATE OF ADMISSION: 06/17/18 DATE OF DISCHARGE: 07/10/18 DISCHARGE DIAGNOSES: As follows: Mobile I: Schizophrenia. Mobile II: Deferred. CONDITION AT THE TIME OF DISCHARGE: Improved. The patient is denying homicidal or suicidal ideation s. He denies auditory or visual hallucinations. His paranoid delusions have markedly improved and thee walls is much more social with a more full affect on the unit. He has been demonstrating the ability to maintain his activities of daily living, going to some groups, making more eye contact. His mother thee as been a part of the discharge planning process and she is in agreement to come to the hospital to t arturo him home. There was some discussion at one point of sending him to the [facility] for [facility] inpatient care; however, both the patient and his family are opposed to this given the improvements we have seen over the last week. However, we feel that the outpatient setting would be appropriate a nd we see no barriers to his further care outside of the hospital. LABORATORY DATA: Comprehensive metabolic testing was performed on 06/18/18. At that time, his hemog lobin A1c was 4.7, triglycerides 74, cholesterol 169, LDL cholesterol 97, HDL cholesterol 57.4. MENTAL STATUS EXAM: The patient is a middle-aged white male with dark brown hair, eye glasses. 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 He is dressed in baggy clothing including sweater and khaki pants. He is calm, cooperat dolores, makes somewhat limited eye contact. Speech is halting and not particularly detailed. However, thee walls uses fluent language. Thought process is linear and goal directed. Thought content is significant for his desire to leave the hospital today. He is denying suicidal or homicidal ideations. He denie s auditory or visual hallucinations. There is no evidence of overt delusions. Insight and judgment are fair given his willingness to follow up with outpatient treatment. Cognitively, he is awake and alert with what would appear to be an average intellect. DISCHARGE INSTRUCTIONS: To the patient are as follows: Part A. Medications: The patient is on: 1. Depakote 750 mg p.o. b.i.d. 2. Olanzapine 15 mg p.o. b.i.d. 3. Propranolol 60 mg p.o. b.i.d. Part B. Diet is regular. Part C. Activities: As tolerated. The patient is a nonsmoker. There are no laboratory or diagnost ic studies pending at the time of discharge. Part D. Followup care: The patient will follow up at the [facility] on 07/13/18 at 2:[address] Olaf Dee. He also has an appointment with Jesús Syed, therapist at the clinic on 07/18/18 at 3:15 p.m. Due to his diagnosis of hypertension, he has been referred to the [facility] with Dr. Mira Hamilton within 1 week of discharge. Part E. Substance abuse followup is nonapplicable. HOSPITAL COURSE: Part A. Reason for admission: The patient is a 32-year-old single white male with a history of schizophrenia, who arrived voluntarily at the hospital after walking himself a long dist ance from his mother's house with complaints of extraterrestrial forces that have been targeting him. He thought he was being hit by radiation from man-made satellites in [place]. He can feel the sens ation in his head, which travels down into his abdomen and chest and other places with a tingling fee ling as well as chest compressions. He was very fearful that he was going to from this radiation . He was also hearing voices of dark colored people who were telling him that he was going to be ania d. He was unsure whether he was experiencing visual hallucinations or thinking in his head about voi gabi of people with dark complexion. These symptoms were very intense on the day prior to admission an d he felt that he could not stay home and walked all the way to the emergency room. In the recent pa st, he stated that his Risperdal had been discontinued at the mental health clinic and changed to car iprazine; however, he had self-discontinued this not feeling like he needed it. Part B. Psychiatric treatment rendered: The patient was admitted to the [facility] and placed on q.15-minute checks for his own safety. Initially, he was started on trials of olanzap ine and Depakote at fairly low levels, although followup blood work indicated that his Depakote level was low. Gradually, these medicines were increased to the effective doses of 15 mg b.i.d. for olanza pine and 750 mg b.i.d. for Depakote. We did observe him being anxious and restless and he had severa l blood pressure readings in the 140s and for this reason, he was started on a trial of propranolol i nitially at 20 mg twice daily, but ultimately titrated to 60 mg twice daily. On the day of discharge , his blood pressure is 128/75. The patient received an EEG on 06/19/18, which did not show any epil eptiform changes. It took AJ a while to get well during this visit and there was some consideration of state hospitalization; however, both the patient and his family were strongly opposed to this and therefore we treated him as long as we could on the inpatient service. At this time, we feel that he has improved and followup Depakote levels have been within the therapeutic range. His followup on t outpatient side will be with Dr. Dee at the [facility]. [id number]/[facility] #: [id number]
== END 2018-07-10 13:45 | disposition home or self-care (01) | DRG 750 ==
LOC: ED 13:53 → BSU 18:32
PROVIDERS: ADMIT Psychiatry & Neurology Psychiatry; ATTEND Psychiatry & Neurology Psychiatry
PROC: 4A00X4Z Measurement of Central Nervous Electrical Activity, External Approach (ICD-10-PCS; principal; 2018-06-19)
PROC: GZHZZZZ Group Psychotherapy (ICD-10-PCS; 2018-06-20)
DX: F20.9 Schizophrenia, unspecified (principal); F41.9 Anxiety disorder, unspecified; F32.9 Major depressive disorder, single episode, unspecified; R00.0 Tachycardia, unspecified; R79.1 Abnormal coagulation profile; E66.9 Obesity, unspecified; Z68.29 Body mass index [BMI] 29.0-29.9, adult; Z81.8 Family history of other mental and behavioral disorders; I10 Essential (primary) hypertension; G25.71 Drug induced akathisia
CPT/HCPCS: 36415; 80053; 80061; 80164; 80307; 80320; 80329; 81003; 83036; 83088; 84443; 85025; 90853; 93005; 95816; 99222; 99231; 99238; 99285; A9270-GY; G0480